=== PATIENT | female | born 1940 | race Caucasian/White ===

== ENCOUNTER 2017-08-16 18:29 | Inpatient (IN) ==
[2017-08-16] MEDS ORDERED: SALINE FLUSH 10ml SYRINGE IVF PRN (18:30)
--- NOTE | 2017-08-16 18:42 | Emergency Department Report ---
Seizure HPI - General Stated Complaint: SEIZURE Time Seen by Provider: 08/16/17 18:30 Source: EMS, RN notes reviewed, old records reviewed, other (NH) Mode of arrival: EMS Limitations: altered mental status - History of Present Illness HPI Narrative: 77yo woman presented to the ER by EMS after a witnessed seizure at her NH. Pt has no known h/o seizures. On EMS's arrival, pt was bradycardic and bradypneic. Pts BG was >100, and EKG was non-diagnostic. Pt initially was unresponsive. While transporting, pt began to open her eyes, but did not focus. On arrival to the ER, pt was able to move her extremities, was opening her eyes, and was able to focus on people and objects in the room. MD complaint: seizure Onset (ago): minute(s) Description of Episode: loss of consciousness, tonic-clonic movement Witnessed: yes - by bystander Trauma: No Seizure History: none Place: other ([place]) Possible Precipitating Event: none Associated symptoms: denies other symptoms Treatments prior to arrival: none - Related Data Home Medications Medication Instructions Recorded Confirmed Acetaminophen [Acetaminophen 8 650 mg PO Q8HR PRN 08/16/17 08/16/17 Hour] Alendronate [Fosamax] 70 mg PO Q7D 08/16/17 08/16/17 Bisacodyl Supp [Dulcolax] 10 mg RECTALLY DAILY PRN 08/16/17 08/16/17 Bisacodyl [Women's Laxative] 5 mg PO DAILY PRN 08/16/17 08/16/17 Cholecalciferol (Vitamin D3) 2,000 unit PO DAILY 08/16/17 08/16/17 [Vitamin D3] Docusate Sodium [Colace] 100 mg PO BID 08/16/17 08/16/17 Hydrocodone/APAP 5/325 [Newberry 1 - 2 tab PO Q4H PRN 08/16/17 08/16/17 5/325] Levothyroxine Tab [Synthroid] 25 mcg PO ACB 08/16/17 08/16/17 Memantine [Namenda] 10 mg PO BID 08/16/17 08/16/17 Milk of Magnesia [Mom] 30 ml PO DAILY PRN 08/16/17 08/16/17 Mv-Min/FA/Vit K/Lycop/Lut/Zeax 1 each PO DAILY 08/16/17 08/16/17 [Ocuvite Eye + Multi Tablet] PEG 3350 17gm PACKET [Miralax] 17 gm PO DAILY PRN 08/16/17 08/16/17 PEG 3350 17gm PACKET [Miralax] 17 gm PO Q2D 08/16/17 08/16/17 Sertraline [Zoloft] 50 mg PO DAILY 08/16/17 08/16/17 Allergies Allergy/AdvReac Type Severity Reaction Status Date / Time azithromycin Allergy Unknown Verified 08/16/17 19:00 cyclobenzaprine Allergy Unknown Verified 08/16/17 19:00 [From Flexeril] shrimp Allergy Unknown Verified 08/16/17 19:00 Review of Systems All systems: reviewed and negative except as stated Neurological: Reports: as per HPI, confusion, other (Seizure). Denies: headache , weakness, numbness, paresthesias, abnormal gait, vertigo PFSH Patient Stated Medical History Dementia Yes Transient Ischemic Attacks ( Yes TIA) Hearing Loss Yes: REFUSES TO WEAR HEARING AID Other HEENT Yes: WEARS GLASSES Gastroesophageal Reflux Yes Disease Hx Urinary Tract Infection Yes Depression Yes - Social History Smoking status: Unknown if ever smoked Physical Exam - Limitations Limitations: no limitations - General General appearance: lethargic - Normal Exams: Head:: Normocephalic without trauma Eyes:: Pupils are PERRLA w/ EOMI, No scleral icterus, irritation, or foreign bodies noted ENMT:: No facial trauma, nasal exudates, pharyngeal erythema, or exudates are noted Neck:: Full range of motion, without adenopathy Lymphatic:: No lymphadenopathy Musculoskeletal:: No tenderness, or deformity noted, good range of motion Integumentary:: No rashes, hives, or bruising noted Course - Consultations Consultation #1: Stanley Telemed: Will admit pt for further eval and treatment of likely CVA. Time: 20:17 Vital Signs Temperature 97.6 F 08/16/17 18:26 Pulse Rate 116 H 08/16/17 18:26 Respiratory Rate 16 08/16/17 18:26 Blood Pressure 126/65 08/16/17 18:26 Pulse Oximetry 94 08/16/17 18:26 Temperature 98.8 F 08/17/17 00:13 Pulse Rate 93 08/17/17 00:13 Respiratory Rate 16 08/17/17 00:13 Blood Pressure 107/54 08/17/17 00:13 Pulse Oximetry 93 08/17/17 00:13 Seizure - MDM Narrative Medical decision making narrative: WBC unremarkable Coags unremarkable CMP shows a BUN of 23; otherwise unremarkable UA unremarkable Tox screen universally negative Pt with a new-onset seizure in a setting of known TIA's; pt has no h/o seizures and no evidence of a mass on CT. No other obvious cause of pts sx. New-onset facial droop is concerning for a CVA, but pt is o/w back to baseline. Hospitalist will admit for further eval/obs. - Differential Diagnosis Likely: focal seizure, generalized seizure, new onset seizure - Medical Records Attestation: I reviewed the patient's medical records. - Lab Data Attestation: I reviewed the patient's lab results. Result diagrams: 08/16/17 18:46 08/16/17 18:46 Lab Results 08/16/17 08/16/17 08/16/17 Range/Units 18:46 18:46 18:46 WBC 7.4 (4.5-11.0) T/MM3 RBC 4.68 (4.00-5.20) M/MM3 Hgb 12.6 (12-16) GM/DL Hct 38.3 (36-46) % MCV 81.8 (80-100) UM3 MCH 26.9 (26-34) UUG MCHC 32.9 (31-37) GM/DL RDW Std Deviation 51.1 H (36.9-50.2) FL Plt Count 238 (130-400) T/MM3 MPV 9.8 (9.4-12.4) UM3 Immature Gran % (Auto) 0.5 (0.0-0.5) % Neut % (Auto) 62.8 (33-66) % Lymph % (Auto) 26.8 (23-45) % [place] % (Auto) 7.5 (0-9.0) % Eos % (Auto) 2.0 (0-4) % Baso % (Auto) 0.4 (0-2) % Neut # (Auto) 4.7 (1.8-7.7) T/MM3 Lymph # (Auto) 2.0 (1-4.8) T/MM3 [place] # (Auto) 0.6 (0-0.8) T/MM3 Eos # (Auto) 0.2 (0-0.5) T/MM3 Baso # (Auto) 0.0 (0-0.2) T/MM3 Abs Immat Gran (auto) 0.04 H (0.00-0.03) T/MM3 INR 0.99 (0.92-1.18) APTT 26.0 (24-36) SEC Turbidity < 20 (0-20) Sodium 143 (134-144) MEQ/L Potassium 4.1 (3.6-5) MEQ/L Chloride 103 (98-107) MEQ/L Carbon Dioxide 29 (22-30) MEQ/L Anion Gap 11 (5-15) meq/L BUN 23.0 H (7-17) MG/DL Creatinine 1.0 (0.7-1.2) mg/dL GFR Calculation 54 BUN/Creatinine Ratio 23 (6-26) RATIO Glucose 109 (65-110) MG/DL Calculated Osmolality 280 (261-280) MOSM/KG Calcium 9.4 (8.4-10.2) MG/DL Total Bilirubin 0.20 (0.20-1.30) MG/DL Icterus Index < 2 (0-7) AST 24 (14-36) U/L ALT 13 (1-35) U/L Alkaline Phosphatase 87 (38-126) U/L Total Protein 7.0 (6.3-8.2) g/dL Albumin 4.0 (3.5-5.0) g/dL Globulin 3.0 (2.4-3.6) G/DL Albumin/Globulin Ratio 1.3 (1.1-2.2) RATIO Specimen Hemolysis < 15 (0-25) Ur Collection Type Urine Color (YELLOW) Urine Clarity Urine pH (5.0-8.0) Ur Specific [place] (1.015-1.025) Urine Protein (NEGATIVE) Urine Glucose (UA) (NEGATIVE) Urine Ketones (NEGATIVE) Urine Occult Blood (NEGATIVE) Urine Nitrate (NEGATIVE) Urine Bilirubin (NEGATIVE) Urine Urobilinogen (NORMAL) EU/DL Ur Leukocyte Esterase (NEGATIVE) Urinalysis Comment Urine Opiates Screen ng/mL Ur Oxycodone Screen ng/mL Urine Methadone Screen ng/mL Ur Propoxyphene Screen ng/mL Ur Barbiturates Screen ng/mL U Tricyclic Antidepress ng/mL Ur Phencyclidine Scrn ng/mL Ur Amphetamines Screen ng/mL U Methamphetamines Scrn ng/mL U Benzodiazepines Scrn ng/mL Urine Cocaine Screen ng/mL U Cannabinoids Screen ng/mL 08/16/17 08/16/17 Range/Units 19:55 19:56 WBC (4.5-11.0) T/MM3 RBC (4.00-5.20) M/MM3 Hgb (12-16) GM/DL Hct (36-46) % MCV (80-100) UM3 MCH (26-34) UUG MCHC (31-37) GM/DL RDW Std Deviation (36.9-50.2) FL Plt Count (130-400) T/MM3 MPV (9.4-12.4) UM3 Immature Gran % (Auto) (0.0-0.5) % Neut % (Auto) (33-66) % Lymph % (Auto) (23-45) % [place] % (Auto) (0-9.0) % Eos % (Auto) (0-4) % Baso % (Auto) (0-2) % Neut # (Auto) (1.8-7.7) T/MM3 Lymph # (Auto) (1-4.8) T/MM3 [place] # (Auto) (0-0.8) T/MM3 Eos # (Auto) (0-0.5) T/MM3 Baso # (Auto) (0-0.2) T/MM3 Abs Immat Gran (auto) (0.00-0.03) T/MM3 INR (0.92-1.18) APTT (24-36) SEC Turbidity (0-20) Sodium (134-144) MEQ/L Potassium (3.6-5) MEQ/L Chloride (98-107) MEQ/L Carbon Dioxide (22-30) MEQ/L Anion Gap (5-15) meq/L BUN (7-17) MG/DL Creatinine (0.7-1.2) mg/dL GFR Calculation BUN/Creatinine Ratio (6-26) RATIO Glucose (65-110) MG/DL Calculated Osmolality (261-280) MOSM/KG Calcium (8.4-10.2) MG/DL Total Bilirubin (0.20-1.30) MG/DL Icterus Index (0-7) AST (14-36) U/L ALT (1-35) U/L Alkaline Phosphatase (38-126) U/L Total Protein (6.3-8.2) g/dL Albumin (3.5-5.0) g/dL Globulin (2.4-3.6) G/DL Albumin/Globulin Ratio (1.1-2.2) RATIO Specimen Hemolysis (0-25) Ur Collection Type Urine, cath soto Urine Color Yellow (YELLOW) Urine Clarity Clear Urine pH 6.5 (5.0-8.0) Ur Specific [place] 1.010 L (1.015-1.025) Urine Protein Negative (NEGATIVE) Urine Glucose (UA) Negative (NEGATIVE) Urine Ketones Negative (NEGATIVE) Urine Occult Blood Negative (NEGATIVE) Urine Nitrate Negative (NEGATIVE) Urine Bilirubin Negative (NEGATIVE) Urine Urobilinogen 0.2 (NORMAL) EU/DL Ur Leukocyte Esterase Negative (NEGATIVE) Urinalysis Comment Microscopic not ind. Urine Opiates Screen Negative ng/mL Ur Oxycodone Screen Negative ng/mL Urine Methadone Screen Negative ng/mL Ur Propoxyphene Screen Negative ng/mL Ur Barbiturates Screen Negative ng/mL U Tricyclic Antidepress Negative ng/mL Ur Phencyclidine Scrn Negative ng/mL Ur Amphetamines Screen Negative ng/mL U Methamphetamines Scrn Negative ng/mL U Benzodiazepines Scrn Negative ng/mL Urine Cocaine Screen Negative ng/mL U Cannabinoids Screen Negative ng/mL - Radiology Data MDM Radiology Attestation Statement: I reviewed the patient's radiology results. CT Head: IMPRESSION: No evidence of acute intracranial brain pathology. - EKG Data EKG #1 EKG attestation: Yes: I reviewed and interpreted this EKG. EKG shows normal: sinus rhythm, axis, intervals, QRS complexes, ST-T waves Rate: tachycardia Interpretation: normal EKG Disposition Clinical Impression: Seizure CVA (cerebral vascular accident) Qualifiers: CVA mechanism: unspecified Qualified Code(s): I63.9 - Cerebral infarction, unspecified Disposition: 02 To [facility] Condition: Improved Time of Disposition: 20:31 - Seen By: physician
--- OUTSIDE RECORDS SUMMARY | 2017-08-16 18:59 | External Medical Summary | Clinical Summary ---
:1940 Author Organization [facility] Address [address] [place] [id number] Phone Care Team Providers Name Role Phone Danni Gonzales MD Primary Care Provider Allergies Active Allergy Reactions Severity Noted Date Comments Cyclobenzaprine Rash Low 03/22/2017 Azithromycin Rash Low 03/22/2017 Current Medications Prescription Sig. Disp. Refills Start Date End Date Status levothyroxine Take 25 mcg by mouth Active (SYNTHROID) 25 MCG every morning before tablet breakfast. Multiple Take 1 tablet by Active Vitamins-Minerals mouth daily. (OCUVITE EYE + MULTI PO) sertraline (ZOLOFT) Take 50 mg by mouth Active 50 MG tablet daily. Cholecalciferol 2000 Take 2,000 mg by Active units CAPS mouth daily. Cholecalciferol (Vitamin d3) memantine (NAMENDA Take 28 mg by mouth Active XR) 28 MG ER capsule daily. alendronate (FOSAMAX) Take 70 mg by mouth Active 70 MG tablet every 7 days. hydrocodone-acetamino Take 1-2 tablets by 30 tablet 0 03/28/2017 Active phen (NORCO) 5-325 mouth every 4 (four) MGIndications: Closed hours as needed for fracture of multiple Moderate Pain. Do ribs of right side not exceed a daily with routine healing, dose of 12 tablets subsequent encounter acetaminophen Take 2 tablets (650 30 tablet 0 03/28/2017 Active (TYLENOL) 325 MG mg total) by mouth tabletIndications: every 6 (six) hours Closed fracture of as needed for Mild multiple ribs of Pain or Fever. right side with routine healing, subsequent encounter polyethylene glycol Take 17 g by mouth 14 each 0 03/28/2017 Active (MIRALAX) daily as needed for packetIndications: Constipation. Closed fracture of multiple ribs of right side with routine healing, subsequent encounter bisacodyl (DULCOLAX) Take 1 tablet (5 mg 30 tablet 0 03/28/2017 Active 5 MG EC total) by mouth tabletIndications: daily as needed for Closed fracture of Constipation. multiple ribs of right side with routine healing, subsequent encounter Active Problems Problem Noted Date Acute left ankle pain 04/25/2017 Closed nondisplaced bicondylar fracture of left tibia with routine 04/25/2017 healing, subsequent encounter Right hand fracture, closed, initial encounter 03/28/2017 Overview: 4th and 5th distal metacarpal Closed nondisplaced fracture of phalanx of left thumb 03/28/2017 Tibial fracture 03/28/2017 Overview: Left tibial plateau fx repaired with ORIF Clavicle fracture 03/28/2017 Fibula fracture 03/22/2017 Late onset Alzheimer's disease without behavioral disturbance 03/22/2017 Other specified hypothyroidism 03/22/2017 Osteoporosis 03/22/2017 Closed fracture of multiple ribs of right side, initial encounter 03/22/2017 Urinary tract infection without hematuria, site unspecified 03/22/2017 Overview: From cultures obtained at [facility] Resolved Problems Problem Noted Date Resolved Date Fall 03/23/2017 03/28/2017 Sepsis secondary to UTI (HCC) 03/23/2017 03/28/2017 Traumatic pneumothorax 03/22/2017 03/28/2017 Overview: On right Encounters Date Type Specialty Care Team Description 07/11/2017 Office Visit Nima Gamino MD Closed nondisplaced bicondylar fracture of left tibia with routine healing, subsequent encounter (Primary Dx) 07/11/2017 Imaging Nima Gamino MD Closed nondisplaced bicondylar fracture of left tibia with routine healing, subsequent encounter 07/10/2017 Orders Only Nima Gamino MD Closed nondisplaced bicondylar fracture of left tibia with routine healing, subsequent encounter (Primary Dx) 05/30/2017 Imaging Nima Gamino MD Closed nondisplaced bicondylar fracture of left tibia with routine healing, subsequent encounter 05/30/2017 Office Visit Nima Gamino MD Closed fracture of multiple ribs of right side, initial encounter (Primary Dx); Closed nondisplaced bicondylar fracture of left tibia with routine healing, subsequent encounter 05/29/2017 Orders Only Nima Gamino MD Closed nondisplaced bicondylar fracture of left tibia with routine healing, subsequent encounter (Primary Dx) from Last 3 Months Immunizations Name Dates Previously Given Next Due L2F4-10,injectable ([employer] registry) 05/29/2009 Hep B, Adult 04/23/1992, 11/21/1991, 10/17/1991 Herpes Zoster-Live(Zostavax) 04/07/2012 INFLUENZA A&B TRIVALENT VAC 02/15/2017 ADJUVANTED PF (Adults=>65 y/o-FLUAD) Tdap 03/22/2017 Social History Tobacco Use Types Packs/Day Years Used Date Never Assessed Sex Assigned at Date Recorded Not on file Last Filed Vital Signs Vital Sign Reading Time Taken Blood Pressure 104/55 03/28/2017 9:36 AM TELEVISION AGENT Pulse 115 03/28/2017 9:36 AM TELEVISION AGENT Temperature 37.2 C (98.9 F) 03/28/2017 9:36 AM TELEVISION AGENT Respiratory Rate 16 03/28/2017 9:36 AM TELEVISION AGENT Oxygen Saturation 98% 03/28/2017 9:36 AM TELEVISION AGENT Inhaled Oxygen Concentration - - Weight 56.8 kg (125 lb 3.2 oz) 03/27/2017 3:14 AM TELEVISION AGENT Height 162.6 cm (5' 4") 03/26/2017 3:27 AM TELEVISION AGENT Body Mass Index 21.49 03/27/2017 3:14 AM TELEVISION AGENT Plan of Treatment Health Maintenance Due Date Last Done Comments Pneumo-Adult (1 of 2 - PCV13) 2005 Annual Wellness Visit 03/27/2006 DTaP,Tdap,and Td Vaccines (2 - Td) 03/22/2027 03/22/2017 Zoster Vaccine Completed 04/07/2012 Influenza Vaccine Completed 02/15/2017 Implants Implanted Type Area Loaf Counter Device Expiration Model / Serial Identifier Date / Lot Chip Cancellous Cube 30cc - [id number] Left: [employer]OURCE [id number] 06/04 [id number] / Implanted: Qty: 1 on 03/25/2017 by Nima Gamino MD Tibia / [id number] Screw Self-Tapping 3.5mm X 38mm - [id number] Left: Synthes 204.838 / Implanted: Qty: 1 on 03/25/2017 by Nima Gamino MD Tibia / Plate, Proximal Tibia 6 Holes Left 117 Mm - [id number] Left: Synthes [id number] / Implanted: Qty: 1 on 03/25/2017 by Nima Gamino MD Tibia / Screw Variable Angle Locking Self Tapping 50 Mm - [id number] Left: Synthes 02.127.150 / Implanted: Qty: 2 on 03/25/2017 by Nima Gamino MD Tibia / Screw Variable Angle Locking Self Tapping 60 Mm - [id number] Left: Synthes 02.127.160 / Implanted: Qty: 1 on 03/25/2017 by Nima Gamino MD Tibia / Screw Variable Angle Locking Self Tapping 65 Mm - [id number] Left: Synthes 02.127.165 / Implanted: Qty: 1 on 03/25/2017 by Nima Gamino MD Tibia / Screw Variable Angle Locking Self Tapping 70 Mm - [id number] Left: Synthes 02.127.170 / Implanted: Qty: 1 on 03/25/2017 by Nima Gamino MD Tibia / Screw Self-Tapping 3.5mm X 28mm - [id number] Left: Synthes 204.828 / Implanted: Qty: 1 on 03/25/2017 by Nima Gamino MD Tibia / Screw Self-Tapping 3.5mm X 30mm - [id number] Left: Synthes 204.830 / Implanted: Qty: 1 on 03/25/2017 by Nima Gamino MD Tibia / Screw Self-Tapping 3.5mm X 32mm - [id number] Left: Synthes 204.832 / Implanted: Qty: 2 on 03/25/2017 by Nima Gamino MD Tibia / Results XR Left Knee 2 views (07/11/2017 1:59 PM)Only the most recent of2 resultswithin the time period is included. Specimen Performing Laboratory PACS Impressions Impression: Stable healing left tibial plateau fracture Narrative Clinical Indication: Reason for exam:->recheck 2 views of the left knee Findings: X-rays the left knee demonstrate plate and screw fixation across a tibial plateau fracture. Closed treatment of proximal fibula fracture has gone on to successful union. There is no evidence of any implant failure. Fracture lines have consolidated well. Overlying brace material is noted Procedure Note Jef Mccarthy Results In - 07/12/2017 7:33 AM TELEVISION AGENT Clinical Indication: Reason for exam:->recheck 2 views of the left knee Findings: X-rays the left knee demonstrate plate and screw fixation across a tibial plateau fracture. Closed treatment of proximal fibula fracture has gone on to successful union. There is no evidence of any implant failure. Fracture lines have consolidated well. Overlying brace material is noted IMPRESSION: Impression: Stable healing left tibial plateau fracture from Last 3 Months
--- OUTSIDE RECORDS SUMMARY | 2017-08-16 18:59 | External Medical Summary | Encounter Summary ---
:1940 Author Organization [facility] Address [address] [place] [address] Phone Care Team Providers Name Role Phone Danni Gonzales MD Primary Care Provider Encounter Details Date Type Department Care Team Description 07/11/2017 Imaging Gilberto Nava Neuro Nima Gamino, Closed nondisplaced X-Ray-Heron Howe MD bicondylar fracture of [address] left [place] [address] [place] [address] healing, subsequent [phone] encounter Social History Tobacco Use Types Packs/Day Years Used Date Never Assessed Sex Assigned at Date Recorded Not on file as of this encounter Plan of Treatment Not on fileas of this encounter Results XR Left Knee 2 views (07/11/2017 1:59 PM) Specimen Performing Laboratory PACS Impressions Impression: Stable [...] Overlying brace material is noted Procedure Note Fabio, Rad Results In - 07/12/2017 7:33 AM CHAIR SPRING ASSEMBLER Clinical Indication: Reason for exam:->recheck 2 views [...] Impression: Stable healing left tibial plateau fracture in this encounter Visit Diagnoses Diagnosis Closed nondisplaced bicondylar fracture of left tibia with routine healing, subsequent encounter
--- OUTSIDE RECORDS SUMMARY | 2017-08-16 19:00 | External Medical Summary | Continuity of Care Document ---
:[address] [facility]. Address [address] [place] [address] Care Team Providers Name Role Phone Danni Gonzales MD Primary Care Physician Insurance Providers Payer Name Policy Number Subscriber Name Relationship MEDICARE INPT & OUTPT [id number] RAMANA PITT SELF / SAME PATIENT [facility] [id number] RAMANA PITT SELF / SAME PATIENT Advance Directives Directive Response Recorded Date/Time Advance Directives: Yes 03/22/17 4:35am Chief Complaint and Reason for Visit Reason for Visit Problems Active Medical Problems Problem Onset Date Recorded Date Status Acute subdural hematoma Unknown 08/21/16 Active Distal radius fracture, left Unknown 08/21/16 Active Fracture of ulnar styloid Unknown 08/21/16 Active Medications Current Home Medications Medication Dose Units Route Directions Days/Qty Instructions Start Date Alendronate (Fosamax) 70 MG By Mouth WEEKLY 70 MG TABLET Cholecalciferol 2,000 IU By Mouth Once a day (Vitamin D3) 2,000 IU SGL Eye Formula 1 TAB By Mouth Once a day Multivit/mineral (Ocuvite) 1 TAB TABLET Levothyroxine 0.025 MG By Mouth Once a day (Synthroid) 0.025 MG TABLET Memantine XR (Namenda 28 MG By Mouth Once a day XR) 28 MG CAPSULE Sertraline (Zoloft) 50 MG By Mouth Once a day 50 MG TABLET Past Home Medications Medication Directions Ordered Status Alprazolam (Xanax) 0.5 Mg Tablet as needed for SEVERE Unknown Discontinued Tablet, 0.5 Mg By Mouth AGITATION Acetaminophen (Tylenol) 325 Mg Every six hours as needed for Unknown Discontinued Tablet Tablet, 650 Mg By Mouth pain Hydrocodone/Acetaminophen ([place]) Q4-6 HR as needed for Unknown Discontinued 7.5 Mg/325 Mg Tablet Tablet, 1-2 NEEDED FOR PAIN Tab By Mouth Memantine (Namenda) (Unknown Unknown Discontinued Strength) Tablet Tablet, Unknown Dose By Mouth Sertraline (Zoloft) 25 Mg Tablet Once a day Unknown Discontinued Tablet, 25 Mg By Mouth Family History Relationship Name Date of Condition Age ( At Cause of Age ( At Age Gender Recorded Onset ) ) Date/Time FATHER No pertinent 60+ M 08/22/16 family 1028 history MOTHER No pertinent 60+ F 08/22/16 family 1028 history Social History Problem Response Recorded Date Occupation/Former Occupation: Retired 08/30/16 Query Response Start Date Stop Date Smoking status: Never smoker Hospital Discharge Instructions No hospital discharge instructions. 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: Y March 22, 2017 5:18am Contractures: N August 24, 2016 8:31am Unresponsive: N August 24, 2016 8:31am Allergies, Adverse Reactions, Alerts Allergen Type Severity Reaction Status Last Updated azithromycin Allergy Unknown Active 03/22/17 cyclobenzaprine Allergy Unknown RASH Active 03/22/17 Immunizations Name Date Given Type Tetanus Unknown Historical Tdap 03/22/17 Administered Vital Signs Vital Reading Collection Date/Time Result Blood Pressure 03/22/17 7:45am 131/67 Blood Pressure Source 03/22/17 7:45am Supine Temperature 03/22/17 4:35am 97.7 F Temperature Source 03/22/17 4:35am Oral Respiratory Rate 03/22/17 7:45am 18 Pulse Rate 03/22/17 7:45am 92 Pulse Location 03/22/17 7:45am Cardio-Resp. Monitor Bedside Pulse Oximetry 03/22/17 7:45am 95 Height 03/22/17 4:35am 5 ft 2.01 in Height 03/22/17 4:35am 157.5 cm Weight 03/22/17 4:35am 120 lb Weight 03/22/17 4:35am 54.5 kg Body Mass Index 03/22/17 4:35am 22.0 kg/m2 Results Laboratory Results Test Name Result Units Flags Reference Collection Result Comments Date/Time Date/Time Urine Collection CATHETER 03/22/17 03/22/17 Type 7:00am 7:22am Urine Color Yellow 03/22/17 03/22/17 7:00am 7:33am Urine Appearance Hazy 03/22/17 03/22/17 7:00am 7:33am Urine Specific 1.015 1.005-1.035 03/22/17 03/22/17 [place] 7:00am 7:33am Urine pH 6 5-8 03/22/17 03/22/17 7:00am 7:33am Urine Protein Negative NEGATIVE 03/22/17 03/22/17 7:00am 7:33am Urine Glucose Negative NEGATIVE 03/22/17 03/22/17 7:00am 7:33am Urine Ketones Negative NEGATIVE 03/22/17 03/22/17 7:00am 7:33am Urine Bilirubin Negative NEGATIVE 03/22/17 03/22/17 7:00am 7:33am Urine Urobilinogen Negative mg/dL NEGATIVE 03/22/17 03/22/17 7:00am 7:33am Urine Nitrate Positive H NEGATIVE 03/22/17 03/22/17 7:00am 7:33am Urine Blood Negative NEGATIVE 03/22/17 03/22/17 7:00am 7:33am Urine Leukocyte Negative NEGATIVE 03/22/17 03/22/17 Esterase 7:00am 7:33am Urine WBC 5-10 /hpf H 03/22/17 03/22/17 7:00am 7:33am Urine RBC 0-2 /hpf 03/22/17 03/22/17 7:00am 7:33am Urine Squamous 0-2 /hpf 03/22/17 03/22/17 Epithelial Cells 7:00am 7:33am Urine Mucus Present /lpf 03/22/17 03/22/17 7:00am 7:33am Urine Bacteria None Seen /hpf 03/22/17 03/22/17 7:00am 7:33am White Blood Count 15.8 K/mm3 H 4.8-10.8 03/22/17 03/22/17 4:57am 5:05am Red Blood Count 4.17 M/mm3 4.10-5.30 03/22/17 03/22/17 4:57am 5:05am Hemoglobin 12.0 g/dl L 12.5-16.0 03/22/17 03/22/17 4:57am 5:05am Hematocrit 36.3 % L 37.0-47.0 03/22/17 03/22/17 4:57am 5:05am Mean Corpuscular 87 fl 80.0-100.0 03/22/17 03/22/17 Volume 4:57am 5:05am Mean Corpuscular 29 pg 27.0-31.0 03/22/17 03/22/17 Hemoglobin 4:57am 5:05am Mean Corpuscular 33 g/dl 33.0-37.0 03/22/17 03/22/17 Hemoglobin Concent 4:57am 5:05am Red Cell 13.8 % 11.5-14.5 03/22/17 03/22/17 Distribution Width 4:57am 5:05am Platelet Count 190 K/mm3 130-400 03/22/17 03/22/17 4:57am 5:05am Mean Platelet 10.0 fl 7.4-10.4 03/22/17 03/22/17 Volume 4:57am 5:05am Granulocytes (%) 82.4 % H 42.2-75.2 03/22/17 03/22/17 4:57am 5:05am Lymphocytes % 10.6 % L 20.0-51.0 03/22/17 03/22/17 4:57am 5:05am Monocytes % 5.0 % 1.7-9.3 03/22/17 03/22/17 4:57am 5:05am Eosinophils % 0.8 % 0-4.0 03/22/17 03/22/17 4:57am 5:05am Basophils % 0.3 % 0.0-2.0 03/22/17 03/22/17 4:57am 5:05am Granulocytes # 13.0 H 1.4-6.5 03/22/17 03/22/17 4:57am 5:05am Lymphocytes # 1.7 1.2-3.4 03/22/17 03/22/17 4:57am 5:05am Monocytes # 0.8 H 0.1-0.6 03/22/17 03/22/17 4:57am 5:05am Eosinophils # 0.1 0.0-0.7 03/22/17 03/22/17 4:57am 5:05am Basophils # 0.0 0.0-0.2 03/22/17 03/22/17 4:57am 5:05am Glucose Level 110 mg/dL H 74-106 03/22/17 03/22/17 4:57am 5:41am Blood Urea 17 mg/dL 7-17 03/22/17 03/22/17 Nitrogen 4:57am 5:41am Creatinine 0.92 mg/dL 0.52-1.25 03/22/17 03/22/17 4:57am 5:41am Estimated GFR 71 03/22/17 03/22/17 () 4:57am 5:41am Estimated GFR 59 03/22/17 03/22/17 eGFR Interpretation: (Non- 4:57am 5:41am [place] Chronic Kidney Disease=CKD CKD STAGE I > or=90 mL/min/1.73 square meters STAGE II 60 - 89 STAGE III 30 - 59 STAGE IV 15 - 29 STAGE V <15 NOTE: The MDRD Study equation has not been validated for use with the elderly (over 70 years of age), women, patients with serious comorbid conditions, or persons with extremes of body size, muscle mass, or nutritional status. Sodium Level 137 mmol/L 137-145 03/22/17 03/22/17 4:57am 5:41am Potassium Level 3.8 mmol/L 3.4-5.0 03/22/17 03/22/17 4:57am 5:41am Chloride Level 104 mmol/L 98-107 03/22/17 03/22/17 4:57am 5:41am Carbon Dioxide 26 mmol/L 22-30 03/22/17 03/22/17 Level 4:57am 5:41am Anion Gap 7 mmol/L 7-16 03/22/17 03/22/17 4:57am 5:41am Calcium Level 8.8 mg/dL 8.4-10.2 03/22/17 03/22/17 4:57am 5:41am Calcium Adjusted 9.2 mg/dL 8.4-10.2 03/22/17 03/22/17 for Albumin 4:57am 5:41am Serum Total 6.1 gm/dL L 6.4-8.2 03/22/17 03/22/17 Protein 4:57am 5:41am Albumin 3.5 gm/dL 3.5-5.0 03/22/17 03/22/17 4:57am 5:41am Total Bilirubin 0.4 mg/dL 0.0-1.0 03/22/17 03/22/17 4:57am 5:41am Aspartate Amino 29 U/L 15-37 03/22/17 03/22/17 Transf (AST/SGOT) 4:57am 5:41am Alanine 32 U/L 9-52 03/22/17 03/22/17 Aminotransferase 4:57am 5:41am (ALT/SGPT) Alkaline 54 U/L 50-136 03/22/17 03/22/17 Phosphatase 4:57am 5:41am Procedures No Known History of Procedures. Encounters Encounter Location Arrival/Admit Date Discharge/Depart Date Attending Provider Departed [facility] 03/22/17 4:24am 03/22/17 7:58am [facility] MD Billy
--- OUTSIDE RECORDS SUMMARY | 2017-08-16 19:00 | External Medical Summary | Encounter Summary ---
:1940 Author Organization [facility] Address [address] [place] [address] Phone Care Team Providers Name Role Phone Danni Gonzales MD Primary Care Provider Encounter Details Date Type Department Care Team Description 05/29/2017 Orders Only Nima Barlow, Closed nondisplaced Orthopedics & MD bicondylar fracture of Sports Medicine [address] left tibia with routine [address] [address] healing, [place] [address] encounter (Primary Dx) [phone] Social History Tobacco Use Types Packs/Day Years Used Date Never Assessed Sex Assigned at Date Recorded Not on file as of this encounter Plan of Treatment Not on fileas of this encounter Results XR Left Knee 2 views (05/30/2017 11:31 AM) Specimen Performing Laboratory PACS Impressions Impression: Stable healing left tibial plateau fracture Narrative Clinical Indication: Reason for exam:->recheck 2 views of the left knee Findings: X-rays of the left knee demonstrates stable plate fixation across the tibial plateau fracture. No evidence of change in alignment. Good consolidation at the fracture sites of both the fibula and the tibia are noted Procedure Note Jef Mccarthy Results In - 06/08/2017 9:27 AM [facility] Clinical Indication: Reason for exam:->recheck 2 views of the left knee Findings: X-rays of the left knee demonstrates stable plate fixation across the tibial plateau fracture. No evidence of change in alignment. Good consolidation at the fracture sites of both the fibula and the tibia are noted IMPRESSION: Impression: Stable healing left tibial plateau fracture in this encounter Visit Diagnoses Diagnosis Closed nondisplaced bicondylar fracture of left tibia with routine healing, subsequent encounter - Primary
--- OUTSIDE RECORDS SUMMARY | 2017-08-16 19:00 | External Medical Summary | Continuity of Care Document ---
:1940 Author Organization [facility]. Care Team Providers Name Role Phone Danni Gonzales MD Primary Care Physician Insurance Providers Payer Name Policy Number Subscriber Name Relationship MEDICARE INPT & OUTPT [id number] RAMANA PITT SELF / SAME PATIENT [facility] [id number] RAMANA PITT SELF / SAME PATIENT Advance Directives Directive Response Recorded Date/Time Advance Directives: Yes 08/21/16 10:57pm Chief Complaint and Reason for Visit Reason for Visit ER ADMIT Problems Active Medical Problems Problem Onset Date Recorded Date Status Acute subdural hematoma Unknown 08/21/16 Active Distal radius fracture, left Unknown 08/21/16 Active Fracture of ulnar styloid Unknown 08/21/16 Active Medications Current Home Medications Medication Dose Units Route Directions Days/Qty Instructions Start Date ALPRAZolam (Xanax) 0.5 MG PO PRN SEVERE 0.5 MG TABLET AGITATION Eye Formula 1 TAB PO Once a day Multivit/mineral (Ocuvite) 1 TAB TABLET Levothyroxine 0.025 MG PO Once a day (Synthroid) 0.025 MG TABLET Memantine XR 28 MG PO Once a day (Namenda XR) 28 MG CAPSULE Sertraline (Zoloft) 50 MG PO Once a day 50 MG TABLET Vitamin D (Kev 2,000 IU PO Once a day Natural D2000) 2,000 IU SGL Past Home Medications Medication Directions Ordered Status Memantine (Namenda) (Unknown Strength) Tablet Tablet, Unknown Discontinued Unknown Dose Po Sertraline (Zoloft) 25 Mg Tablet Tablet, 25 Mg Po Once a day Unknown Discontinued Family History Relationship Name Date of Condition Age ( At Cause of Age ( At Age Gender Recorded Onset ) ) Date/Time FATHER No pertinent 60+ 60+ M 08/22/16 family 1028 history MOTHER No pertinent 60+ 60+ F 08/22/16 family 1028 history Social History Query Response Start Date Stop Date Smoking status: Never smoker Hospital Discharge Instructions Plan of Care Problem: Mobility Goal: increase mobility Instructions: pt/ot Plan of Care Discharge Date 08/24/16 Disposition 03-XFER CORRECTION FAC Prescriptions See Medications Section Care Plan and Goals See Discharge Instructions section Functional Status Query Response Date Recorded Paralysis: N August 24, 2016 8:31am Steady Gait: N August 24, 2016 8:31am Weakness: N August 24, 2016 8:31am 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[employer] Equal: Y August 23, 2016 8:00pm Contractures: N August 24, 2016 8:31am Alert: Y August 24, 2016 8:31am Oriented x4: N August 24, 2016 8:31am Disoriented/Confused: Y August 24, 2016 8:31am Drowsy: N August 24, 2016 8:31am Lethargic: N August 24, 2016 8:31am Unresponsive: N August 24, 2016 8:31am Allergies, Adverse Reactions, Alerts Allergen Type Severity Reaction Status Last Updated azithromycin Allergy Unknown Active 08/22/16 cyclobenzaprine Allergy Unknown RASH Active 08/22/16 Immunizations Name Date Given Type Tetanus Unknown Historical Vital Signs Vital Reading Collection Date/Time Result Blood Pressure 08/24/16 11:30am 132/60 Blood Pressure Source 08/24/16 11:30am Sitting Patient Temperature 08/24/16 11:30am 98.4 Temperature Source 08/24/16 11:30am Oral Respiratory Rate 08/24/16 11:30am 18 Pulse Rate 08/24/16 11:30am 110 Pulse Location 08/24/16 11:30am Dynamap Bedside Pulse Oximetry 08/24/16 11:30am 92 Height 08/24/16 11:30am 162.6 cm Height 08/24/16 11:30am 5 ft 04 in Weight 08/24/16 11:30am 55 kg Weight 08/24/16 11:30am 121 lb 4.07 oz Body Mass Index 08/24/16 11:30am 20.8 Results Laboratory Results Test Name Result Units Flags Reference Collection Result Comments Date/Time Date/Time White Blood Count 8.8 K/mm3 4.8-10.8 08/23/16 08/23/16 6:04am 8:53am Red Blood Count 3.69 M/mm3 L 4.10-5.30 08/23/16 08/23/16 6:04am 8:53am Hemoglobin 10.5 g/dl L 12.5-16.0 08/23/16 08/23/16 6:04am 8:53am Hematocrit 32.8 % L 37.0-47.0 08/23/16 08/23/16 6:04am 8:53am Mean Corpuscular 89 fl 80.0-100.0 08/23/16 08/23/16 Volume 6:04am 8:53am Mean Corpuscular 28 pg 27.0-31.0 08/23/16 08/23/16 Hemoglobin 6:04am 8:53am Mean Corpuscular 32 g/dl L 33.0-37.0 08/23/16 08/23/16 Hemoglobin Concent 6:04am 8:53am Red Cell 13.7 % 11.5-14.5 08/23/16 08/23/16 Distribution Width 6:04am 8:53am Platelet Count 171 K/mm3 130-400 08/23/16 08/23/16 6:04am 8:53am Mean Platelet 10.6 fl H 7.4-10.4 08/23/16 08/23/16 Volume 6:04am 8:53am Glucose Level 100 mg/dL 74-106 08/23/16 08/23/16 6:04am 8:37am Blood Urea 8 mg/dL 7-17 08/23/16 08/23/16 Nitrogen 6:04am 8:37am Creatinine 0.72 mg/dL 0.52-1.25 08/23/16 08/23/16 6:04am 8:37am Estimated GFR 96 08/23/16 08/23/16 () 6:04am 8:37am Estimated GFR 79 08/23/16 08/23/16 eGFR Interpretation: (Non- 6:04am 8:37am [place] Chronic Kidney Disease=CKD CKD STAGE I > [...] muscle mass, or nutritional status. Sodium Level 135 mmol/L L 137-145 08/23/16 08/23/16 6:04am 8:37am Potassium Level 3.6 mmol/L 3.4-5.0 08/23/16 08/23/16 6:04am 8:37am Chloride Level 102 mmol/L 98-107 08/23/16 08/23/16 6:04am 8:37am Carbon Dioxide 24 mmol/L 22-30 08/23/16 08/23/16 Level 6:04am 8:37am Anion Gap 9 mmol/L 7-16 08/23/16 08/23/16 6:04am 8:37am Calcium Level 8.0 mg/dL L 8.4-10.2 08/23/16 08/23/16 6:04am 8:37am Granulocytes (%) 85.9 % H 42.2-75.2 08/22/16 08/22/16 5:25am 6:01am Lymphocytes % 7.1 % L 20.0-51.0 08/22/16 08/22/16 5:25am 6:01am Monocytes % 5.9 % 1.7-9.3 08/22/16 08/22/16 5:25am 6:01am Eosinophils % 0.2 % 0-4.0 08/22/16 08/22/16 5:25am 6:01am Basophils % 0.3 % 0.0-2.0 08/22/16 08/22/16 5:25am 6:01am Granulocytes # 10.9 H 1.4-6.5 08/22/16 08/22/16 5:25am 6:01am Lymphocytes # 0.9 L 1.2-3.4 08/22/16 08/22/16 5:25am 6:01am Monocytes # 0.7 H 0.1-0.6 08/22/16 08/22/16 5:25am 6:01am Eosinophils # 0.0 0.0-0.7 08/22/16 08/22/16 5:25am 6:01am Basophils # 0.0 0.0-0.2 08/22/16 08/22/16 5:25am 6:01am Prothrombin Time 12.5 SECONDS 9.7-12.8 08/21/16 08/21/16 10:21pm 10:45pm INR International 1.1 0.8-3.0 08/21/16 08/21/16 Normalized Ratio 10:21pm 10:45pm Partial 28.0 SECONDS 26.0-37.0 08/21/16 08/21/16 Thromboplastin 10:21pm 10:45pm Time - [place] Calcium Adjusted 8.5 mg/dL 8.4-10.2 08/21/16 08/21/16 for Albumin 10:21pm 10:45pm Serum Total 6.3 gm/dL L 6.4-8.2 08/21/16 08/21/16 Protein 10:21pm 10:45pm Albumin 3.8 gm/dL 3.5-5.0 08/21/16 08/21/16 10:21pm 10:45pm Total Bilirubin 0.6 mg/dL 0.0-1.0 08/21/16 08/21/16 10:21pm 10:45pm Aspartate Amino 23 U/L 15-37 08/21/16 08/21/16 Transf (AST/SGOT) 10:21pm 10:45pm Alanine 19 U/L 9-52 08/21/16 08/21/16 Aminotransferase 10:21pm 10:45pm (ALT/SGPT) Alkaline 72 U/L 50-136 08/21/16 08/21/16 Phosphatase 10:21pm 10:45pm Microbiology Results Procedure Source Result Collection Result Date/Time Date/Time MRSA Screen Nares, Right And No Methicillin 08/21/16 11:00pm 08/23/16 9: 46am Left resistant Staph aureus (MRSA) isolated. [facility] Name: RAMANA PITT [place], [place] Physician: EMMANUEL ALDANA Admit: 08/21/16 : 40 Status: ADM IN Room: 323 History and Physical Examination DICTATING PROVIDER: Tj Aldana M.D. DATE: 08/21/2016 CHIEF COMPLAINT: Status-post fall from standing. HISTORY OF PRESENT ILLNESS: Rmaana is a very pleasant, 76 -year-old female who was brought to the Emergency Room by her family after a fall from standing while walking across the street this evening. The patient has a history of dementia and is in assisted living at [facility]. The family denies any other recent history of falls. On presentation to the Emergency Room, the patient had a GCS of 14 due to confusion associated with her dementia. Temperature was 98.4. Blood pressure was 153/90 and pulse was 100. She complained of pain in the left wrist with obvious deformity of the left wrist. She also had a laceration to the temporal skull. On work-up in the ER, plain film of the wrist shows a distal left wrist fracture. Orthopedic surgery has been consulted about this. I was consulted to see the patient for potential admission due to head CT showing a small 2 mm left-sided subdural hematoma in the frontotemporal location. There is no associated mass-effect with this. The patient has maintained her baseline mental status with a GCS of 14 here throughout her ER stay over the last 2 hours. The family said that they would really like her to be admitted here to the hospital for observation. They don't believe they would like to proceed with any sort of surgical care even if her head bleed were to progress and require it. They are, however, considering surgical repair of the left wrist fracture. Again, because of this, I was asked to admit the patient. PAST MEDICAL HISTORY: 1. Hypothyroidism. 2. Dementia. PAST SURGICAL HISTORY: 1. Hysterectomy. 2. Cholecystectomy. 3. Rectocele and cystocele repair. ALLERGIES: 1. Azithromycin. 2. Flexeril. SOCIAL HISTORY: The patient lives in an assisted living facility at [facility]. She denies tobacco, alcohol or drug abuse. REVIEW OF SYSTEMS: Negative other than as in the History of Present Illness and Past Medical History. [facility] Name: RAMANA PITT [place], [place] Physician: EMMANUEL ALDANA Admit: 08/21/16 : 40 Status: ADM IN Room: 323 History and Physical Examination PHYSICAL EXAMINATION: Vital signs: As above. In general, the patient is alert and appropriate, but confused. HEAD: There is a laceration to the right temporal area that has been repaired with margoth per the ER physician. NECK/BACK: No pain in the midline with palpation. CARDIOVASCULAR: Regular rate and rhythm. LUNGS: No labored respirations. ABDOMEN: Soft, nontender and nondistended. EXTREMITIES: There is an obvious deformity at the left wrist with known distal left radius and ulna fracture. The patient has obvious swelling associated with this. There is also ecchymosis on the back of the right hand, but no pain with this. Lower extremities are intact with normal range of motion and good pulses bilaterally. PELVIS: Stable without pain on palpation. NEUROLOGIC: She is at her baseline mental status per the family. Her GCS is 14. Motor and sensory are grossly intact. LABS: Pending. We are checking a CBC, CMP, PTT and INR. ASSESSMENT: 76 -year-old female 1. Status-post fall from standing. 2. Left subdural hematoma with no mass-effect or associated change in GCS/ mental status. 3. Left distal radius fracture. 4. Dementia. 5. Hypothyroidism. PLAN: 1. Left subdural hematoma with no mass-effect or associated change in GCS/ mental status. I had a lengthy discussion with the patient's two daughters who are present in the room. They again voice that they would really like for the patient to be observed in the hospital, if possible, and not be transferred to a facility with neurosurgery coverage, even though if she stays here we would not be able to do anything emergently if she were to Via [facility] Name: RAMANA PITT [place], [place] Physician: EMMANUEL ALDANA Admit: 08/21/16 : 40 Status: ADM IN Room: 323 History and Physical Examination have progression of her subdural hematoma and potential need for neurosurgery. They understand that neurosurgery is not available here. They are not sure they would want to do anything surgically given the patient's underlying dementia if this were to progress. Because of this, we will admit the patient here to the [facility] for close observation and neuro checks. We will repeat a CT scan of the head in the morning. If there has been progression of the bleed on CT, we will have to discuss with family how they wish to proceed at that time. 2. Left distal radius fracture. Orthopedic surgery has been consulted. They recommend placement of a sugar-tong splint which the ER physician will do at this time. 3. Dementia. We will continue the patient's home medications including Namenda and Zoloft. CODE STATUS: The two daughters who are with her are not her actual DPOA. I had them call the daughter who is the DPOA. They are working on straightening out her code status at this time. [id number] cc: Danni Gonzales Signed By: EMMANUEL ALDANA ‚‚‚‚<< Signature on File>> ‚‚08/23/16‚‚/ 1505 Dictated By: EMMANUEL ALDANA ‚‚D/ Transcribed: SAMANTHA POTTER ‚‚ƒ‚‚‚&#[id number] ;ƒ‚‚‚‚D/ 0616 History and Physical Exam End Of Report Procedures No Known History of Procedures. Encounters Encounter Location Arrival/Admit Date Discharge/Depart Date Attending Provider Discharged [facility] 08/21/16 6:31pm 08/24/16 1:31pm EMMANUEL ALDANA [facility] Discharged [facility] 08/21/16 6:31pm 08/21/16 10:45pm EMMANUEL ALDANA [facility] 08/21/16 5:57pm LIZ RODRIGES Clinical EMS Encounter Diagnosis Onset Date Acute subdural hematoma Distal radius fracture, left Fracture of ulnar styloid
--- OUTSIDE RECORDS SUMMARY | 2017-08-16 19:00 | External Medical Summary | Encounter Summary ---
:1940 Author Organization [facility] Address [address] [place] [address] Phone Care Team Providers Name Role Phone Danni Gonzales MD Primary Care Provider Reason for Visit Reason Comments Leg Pain left Encounter Details Date Type Department Care Team Description 07/11/2017 Office Visit Fortunato Barlow, Closed nondisplaced Orthopedics & MD bicondylar fracture of Sports Medicine [address] left tibia with routine [address] [address] healing, [place] [address] encounter (Primary Dx) [phone] Social History Tobacco Use Types Packs/Day Years Used Date Never Assessed Sex Assigned at Date Recorded Not on file as of this encounter Progress Notes Fortunato Greene MD - 07/11/2017 2:00 PM CSTFormatting of this note may be different from the original. [facility] [address] [address] Patient: Winter Isbell : 1940 Date: 07/11/2017 Procedure: March 25, 2017 open reduction internal fixation of left tibial plateau fracture Interval History: Winter Isbell is a 77 y.o. female who presents for surgical follow up. She is now 3-1/2 months out from operative repair of her left tibial plateau fracture. She has advanced dementia. She does very little weightbearing on her own without assistance presently. She is accompanied to clinic by her family today. They report that she's been complaining of some mild aching sensation around her knee in the last week or so which I think is likely related to the weather. She's not had any erythema drainage or other signs of infection about her incision. She has had decreased physical therapy in the last several weeks as her therapy has run out and she has plateaued in progress. Medical History The Patient's past medical, surgical, family and social histories were reviewed and have been updated where appropriate. Review of Systems: A 14 point review of systems was conducted and is negative except for that which is listed above in the HPI. Phsyical Exam Vital Signs: There were no vitals taken for this visit. General: Well developed Well nourished and in no acute distress Musculoskeletal: On exam today she reaches about 45 of flexion. She has full extension. She does have intact ankle and great toe dorsiflexion. She does not appear to have any sensory deficit. Her incision is healed beautifully. The limb is warm pink and well-perfused. X-rays demonstrate that the patient is healing appropriately Assessment/Plan Winter Isbell is a 77 y.o. female who is now 3-1/2 months out from operative repair of a bicondylar tibial plateau fracture 1. She may be weightbearing as tolerated 2. She no longer needs the brace 3. I recommend that she continue physical therapy for range of motion exercises and gait training 4. It's very long drive for them to come down here some of the transition him to as needed follow-up. They will give me a call if they have any other questions or concerns and we are always happy to see them. 5. I think she's made good progress for her current functional level. While she doesn't have the full flexion that I like to see it'll be gets going to inhibit her daily living Follow up: Return if symptoms worsen or fail to improve. FORTUNATO GREENE MD Electronically Signed 07/11/2017 Division of [facility] [email or web address] [email or web address] in this encounter Plan of Treatment Not on fileas of this encounter Visit Diagnoses Diagnosis Closed nondisplaced bicondylar fracture of left tibia with routine healing, subsequent encounter - Primary
--- OUTSIDE RECORDS SUMMARY | 2017-08-16 19:00 | External Medical Summary | Encounter Summary ---
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
--- OUTSIDE RECORDS SUMMARY | 2017-08-16 19:00 | External Medical Summary | Continuity of Care Document ---
:1940 Author Organization [facility]. Care Team Providers Name Role Phone Danni Gonzales MD Primary Care Physician Insurance Providers Payer Name Policy Number Subscriber Name Relationship MEDICARE INPT & OUTPT [id number] RAMANA PITT SELF / SAME PATIENT [facility] [id number] RAMANA PITT SELF / SAME PATIENT Chief Complaint and Reason for Visit Reason [...] PO PRN SEVERE 0.5 MG TABLET AGITATION Acetaminophen 650 MG PO Every six hours Hold per patient (Tylenol) 325 MG PRN pain request for TABLET choice of OTC or fill as prescription. Eye Formula 1 TAB PO Once a day Multivit/mineral (Ocuvite) 1 TAB TABLET HYDROcodone/Acetam 1-2 TAB PO Q4-6 HR PRN inophen (Deary) NEEDED FOR PAIN 7.5 MG/325 MG TABLET Levothyroxine 0.025 MG PO Once a day (Synthroid) 0.025 MG TABLET Memantine XR 28 MG PO Once a day (Namenda XR) 28 MG CAPSULE Sertraline 50 MG PO Once a day (Zoloft) 50 MG TABLET Vitamin D (Kev 2,000 [...] of Care Discharge Date 08/24/16 Disposition 03-XFER HALF-WAY FAC Prescriptions See Medications Section Functional Status Query Response Date Recorded Paralysis: N August 30, 2016 12:31pm Steady Gait: N August 24, 2016 8:31am Weakness: Y August 30, 2016 12:31pm 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 Vital Signs Vital Reading Collection Date/Time Result Blood Pressure 08/30/16 4:05pm 124/49 Patient Temperature 08/30/16 4:05pm 97.6 Respiratory Rate 08/30/16 4:05pm 14 Pulse Rate 08/30/16 4:05pm 100 Bedside Pulse Oximetry 08/30/16 4:05pm 93 Height 08/30/16 1:30pm 154.94 cm Height 08/30/16 1:30pm 5 ft 1 in Weight 08/30/16 1:30pm 54.5 kg Weight 08/30/16 1:30pm 119.9 lb 14.9 oz Body Mass Index 08/30/16 1:30pm 22.7 Blood Pressure Source 08/24/16 11:30am Sitting Temperature Source 08/24/16 11:30am Oral Pulse Location 08/24/16 11:30am Dynamap Results Laboratory Results Test Name Result Units [...] 08/23/16 08/23/16 eGFR Interpretation: (Non- 6:04am 8:37am Nepalese Chronic Kidney Disease=CKD CKD STAGE I > [...] 08/21/16 08/21/16 Thromboplastin 10:21pm 10:45pm Time - Ocean Calcium Adjusted 8.5 mg/dL 8.4-10.2 08/21/16 08/21/16 [...] Left resistant Staph aureus (MRSA) isolated. [facility] RAMANA PITT [place], [place] Physician: EMMANUEL ALDANA Admit: 08/21/16 : 40 Status: ADM IN Room: 323 History and Physical Examination DICTATING PROVIDER: Tj Aldana M.D. DATE: 08/21/2016 CHIEF COMPLAINT: Status-post fall from standing. HISTORY OF PRESENT ILLNESS: Ramana is a very pleasant, 76 -year-old female who was brought to the Emergency Room by her family after a fall from standing while walking across the street this evening. The patient has a history of dementia and is in assisted [facility]. The family denies any other recent history [...] lives in an assisted living facility at [facility]. She denies tobacco, alcohol or drug abuse. REVIEW OF SYSTEMS: Negative other than as in the History of Present Illness and Past Medical History. [facility] [place]: [place] Physician: EMMANUEL ALDANA Admit: 08/21/16 : [...] anything emergently if she were to [facility] Name: RAMANA PITT [place], [place] Physician: EMMANUEL ALDANA Admit: 08/21/16 : [...] will admit the patient here to the [facility] for close observation and neuro checks. [...] out her code status at this time. [id number] cc: Danni Gonzales Signed By: EMMANUEL ALDANA ‚‚‚‚<< Signature on File>> ‚‚08/23/16‚‚/ 1505 Dictated By: EMMANUEL ALDANA ‚‚D/ 14 Transcribed: SAMANTHA POTTER ‚‚ƒ‚‚‚&#8218 ;ƒ‚‚‚‚D/ 0616 History and Physical Exam End Of Report Procedures Procedure Status Date Provider(s) REPAIR SCALP SKIN, EXTERNAL APPROACH Completed 08/21/16 LIZ RODRIGES Encounters Encounter Location Arrival/Admit Date Discharge/Depart Date Attending Provider Departed [facility] 08/30/16 11:10am 08/30/16 5:35pm Leonel Abdalla [facility] Discharged [facility] 08/21/16 6:31pm 08/24/16 1:31pm JOVAN, [facility] Discharged [facility] 08/21/16 6:31pm 08/21/16 10:45pm JOVAN [facility] Registered [facility] 08/21/16 5:57pm LIZ RODRIGES Clinical EMS Encounter Diagnosis Onset Date Acute subdural hematoma Distal radius fracture, left Fracture of ulnar styloid
--- OUTSIDE RECORDS SUMMARY | 2017-08-16 19:00 | External Medical Summary | Encounter Summary ---
:1940 Author Organization [facility] Address [address] [place] [address] Phone Care Team Providers Name Role Phone Danni Gonzales MD Primary Care Provider Reason for Visit Reason Comments Leg Pain left Encounter Details Date Type Department Care Team Description 05/30/2017 Office Visit Fortunato Barlow, Closed fracture of multiple ribs of right side, initial encounter (Primary Dx); Orthopedics & MD Closed nondisplaced bicondylar fracture of left tibia with routine healing, subsequent encounter Sports Medicine [address] [facility] [address] [address] [place] [address] [phone] Social History Tobacco Use Types Packs/Day Years Used Date Never Assessed Sex Assigned at Date Recorded Not on file as of this encounter Progress Notes Fortunato Greene MD - 05/30/2017 11:30 AM CSTFormatting of this note may be different from the original. [facility] [address] [address] Patient: Winter Isbell : 1940 Date: 05/30/2017 Procedure: March 25, 2017 open reduction internal fixation of a left tibial plateau fracture Interval History: Winter Isbell is a 77 y.o. female who presents for surgical follow up. She is doing excellent. Her pain is been well-controlled. She has reportedly been working on range of motion with physical therapy at the facility. She's not had any new or acute events. There is no sign of any erythema drainage or other signs of infection. She is accompanied to clinic today by HER-2 daughters. Medical History The Patient's past medical, surgical, [...] and in no acute distress Musculoskeletal: On x-ray today she has intact passive knee flexion and extension. Incision is beautifully healed. She reports normal sensation on the thigh knee and lower leg. She can perform ankle and great toe dorsiflexion and plantar flexion. She does continue to have a little bit of swelling. X-rays in clinic today demonstrate that she's maintained her alignment and is consolidating her fractures appropriately Assessment/Plan Winter Isbell is a 77 y.o. female who is healing appropriately about 9 weeks out from operative repair of a left tibial plateau fracture 1. We will start her on weightbearing as tolerated with assistance for transfers 2. She may then progress to weightbearing as tolerated for all other activities 3. When she is getting up and about she needs to have a hinged knee brace on 4. If she is resting and that she does not need to have the hinged knee brace on. 5. Follow up in 6 weeks with new x-rays including 2 views of the left knee 6. Call with questions or concerns Follow up: Return in about 6 weeks (around 07/11/2017). FORTUNATO GREENE MD Electronically Signed 05/30/2017 Division of [facility] [email or web address] in this encounter Plan of Treatment Not on fileas of this encounter Visit Diagnoses Diagnosis Closed fracture of multiple ribs of right side, initial encounter - Primary Closed nondisplaced bicondylar fracture of left tibia with routine healing, subsequent encounter
--- OUTSIDE RECORDS SUMMARY | 2017-08-16 19:00 | External Medical Summary ---
:1940 Author Organization [facility], [facility] Address [address] [place], [place] [address] Care Team Providers Name Role Phone JEROME MENCHACA Unavailable Unavailable PROBLEMS Type Condition ICD9-CM Code [id number] Onset Condition SNOMED Code Code Dates Status Problem Osteoporosis - M81.0 20 September, Active 755077933 fragility fracture 2016August 2016 Problem Chronic depression F34.1 09 Aug, Active 96341606 - GDS 1 (Apr 2015) 2014 Problem Obstructive sleep G47.33 09 Aug, Active 89996770 apnea - does not 2014 wear CPAP Problem CKD 3- CrCl 54 N18.3 20 September, Active 313946807 (August 2016) 2017 Problem Obstructive sleep G47.33 09 Aug, Active 02288402 apnea 2014 Problem Hypothyroidism E03.9 09 Aug, Active 03106824 2014 Problem Stage 3 chronic N18.3 20 September, Active 488555236 kidney disease 2017 Problem Dementia - SLUMS 12 F03.90 09 Aug, Active 03513681 (Apr 2015) 2014 Problem Chronic depression F34.1 09 Aug, Active 596962080 2014 Problem Dementia F03.90 09 Aug, Active 12403587 2014 ALLERGIES No Information ENCOUNTERS Encounter Location Date Diagnosis [facility], [address] [place] [address], Jun, [facility] [phone] [facility], [address] [place] [address], May, [facility] [phone] [facility], [address] [place] [address], May, [facility] [phone] [facility], [address] [place] [address], Mar, [facility] [phone] [facility], [address] [facility], Feb, [facility] [phone] [facility], [address] [place] [address], Dec, [facility] [id number] [facility], [address] [facility] [facility], September, [place] [phone] [facility], [address] [facility], Aug, [place] [phone] [facility], [address] [facility], Jul, [place] [phone] [facility], [address] [facility], Jun, [place] [phone] [facility], [address] [facility], Jun, [place] [phone] [facility], [address] [facility], May, [place] [phone] [facility], [address] [facility], Apr, [place] [phone] [facility] [address] [facility], Nov, [place] [phone] [facility], [address] [facility], Oct, [place] [phone] [facility], [address] [facility], Oct, [place] [phone] [facility], [address] [facility], Jul, [place] [phone] [facility], [address] [facility], Jun, [place] [phone] [facility], [address] [facility], May, [place] [phone] [facility], [address] [facility], Apr, [place] [phone] [facility], [address], September, [place] [phone] [facility], [address] [facility], Mar, [place] [phone] [facility], [address] [facility], Mar, [place] [phone] [facility], [address], Dec, [place] [phone] [facility], [address] [facility], Nov, [place] [phone] [facility], [address] [facility], September, [facility] [place] [phone] [facility], [address] [facility], Aug, [facility] [place] [phone] [facility], [address] [facility], Aug, [facility] [place] [phone] [facility], [address] [facility], May, [facility] [place] [phone] [facility], [address] [facility], Apr, [facility] [place] [phone] [facility], [facility], Feb, [facility] [place] [phone] IMMUNIZATIONS No Known Immunizations SOCIAL HISTORY Never Assessed REASON FOR VISIT AWV ? PLAN OF CARE VITAL SIGNS MEDICATIONS Unknown Medications RESULTS No Results PROCEDURES No Known procedures INSTRUCTIONS MEDICATIONS ADMINISTERED No Known Medications
--- OUTSIDE RECORDS SUMMARY | 2017-08-16 19:00 | External Medical Summary | Encounter Summary ---
:1940 Author Organization [facility] Address [address] [place] [address] Phone Care Team Providers Name Role Phone Danni Gonzales MD Primary Care Provider Encounter Details Date Type Department Care Team Description 05/30/2017 Imaging [place] X-Ray - Nima Gamino, Closed nondisplaced Orthopedics bicondylar fracture of [address] left tibia with routine [place] [address] [place] [address] healing, subsequent [phone] encounter Social History Tobacco Use Types Packs/Day [...] and the tibia are noted Procedure Note Fabio, Rad Results In - 06/08/2017 9:27 AM 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
--- OUTSIDE RECORDS SUMMARY | 2017-08-16 19:01 | External Medical Summary | Continuity of Care Document ---
:1940 Author Organization [facility] Allergies Active Description Code Type Severity Reaction Onset Reported/ Identified Relationship Clinical to Patient Status Yes NO NAME 71049 DRUG N/A N/A AVAILABLE Yes ARICEPT 64561 Drug N/A dizziness 01539 Aller , tremor 0 gy Yes ZITHROMAX Drug N/A N/A (RASH) Aller gy Yes azithromycin Drug Unknown Rash 04/19/2013 Aller gy Yes AZITHROMYCIN 66820 DRUG Low Rash 03/22/2017 INGRE 2016 DI Yes CYCLOBENZAPR 00366 DRUG Low Rash 03/22/2017 INE INGRE 2016 DI Yes azithromycin F0060 Drug Unknown N/A 03/22/2017 77283 Aller gy Yes cyclobenzapr F0060 Drug Unknown RASH 03/22/2017 ine 41813 Aller gy Medications Medication Packaging Start Stop Route Dosage Sig Date Date OCUVITE Oral Oral 6 017 daily Oral Oral 50 SERTRALINE HCL 7 017 Oral Oral 25 LEVOTHYROXINE 7 017 SODIUM VITAMIN Oral Oral 2000 D3 7 017 NAMENDA Oral Oral 28 XR 7 017 XANAX ORAL ORAL 0.25 7 daily FOSAMAX ORAL ORAL 70 7 every week VITAMIN Oral Oral 2000 D3 7 Oral Oral OCUVITE-LUTEIN 7 017 daily Oral Oral 50 SERTRALINE HCL 7 017 Oral Oral 25 LEVOTHYROXINE 7 017 SODIUM NAMENDA Oral Oral 28 XR 7 Oral Oral 25 LEVOTHYROXINE 7 017 SODIUM Oral Oral 50 SERTRALINE HCL 7 Oral Oral OCUVITE-LUTEIN 7 daily Oral Oral 25 LEVOTHYROXINE 7 SODIUM Intravenous 0.1 NALOXONE HCL 0.4 7 PRN MG/ML IJ SOLN Rectal 650 ACETAMINOPHEN 650 7 EVERY 6 HOURS MG RE SUPP PRN Intravenous 1000 ACETAMINOPHEN 10 7 EVERY 6 HOURS MG/ML IV SOLN PRN Oral 650 ACETAMINOPHEN 325 7 EVERY 6 HOURS MG PO TABS PRN Intravenous 4 ONDANSETRON HCL 4 7 EVERY 4 HOURS MG/2ML IJ SOLN PRN Oral 4 ONDANSETRON 4 MG PO 7 EVERY 4 HOURS TBDP PRN ALUM T Oral 30 MAG 7 EVERY 6 HOURS HYDROXIDE-SIMETH PRN 200-200-20 MG/5ML PO SUSP Oral 2 2 SENNOSIDES-DOCUSATE 7 TIMES DAILY SODIUM 8.6-50 MG PO TABS Intravenous 20 2 FAMOTIDINE IN NACL 7 TIMES DAILY 20-0.9 MG/50ML-% IV SOLN Intravenous LACTATED RINGERS IV 7 CONTINUOUS SOLN Oral 20 2 FAMOTIDINE 20 MG PO 7 TIMES DAILY TABS Oral 5 BISACODYL 5 MG PO 7 DAILY PRN TBEC Rectal 10 BISACODYL 10 MG RE 7 DAILY PRN SUPP Oral 17 POLYETHYLENE GLYCOL 7 DAILY PRN 3350 PO PACK Oral 100 2 DOCUSATE SODIUM 100 7 TIMES DAILY MG PO CAPS Oral 28 MEMANTINE HCL ER 28 7 DAILY MG PO CP24 Intravenous 1 CEFTRIAXONE 7 EVERY 24 SODIUM-DEXTROSE HOURS 1-3.74 GM-% IV SOLR Oral 25 LEVOTHYROXINE 7 EVERY MORNING SODIUM 25 MCG PO BEFORE TABS BREAKFAST Oral 50 SERTRALINE HCL 50 7 DAILY MG PO TABS VITAMIN Oral 1000 D 1000 UNITS PO 7 DAILY TABS Intravenous 20 FAMOTIDINE IN NACL 7 DAILY 20-0.9 MG/50ML-% IV SOLN Oral 20 FAMOTIDINE 20 MG PO 7 DAILY TABS Intravenous 1000 LACTATED RINGERS IV 7 CONTINUOUS SOLN Intravenous LIDOCAINE HCL 1 7 PRN % IJ SOLN Intravenous PROPOFOL 200 7 PRN MG/20ML IV EMUL Intravenous ROCURONIUM BROMIDE 7 PRN 50 MG/5ML IV SOLN Intravenous PHENYLEPHRINE 7 PRN HCL-NACL (PF) 1-0.9 MG/10ML-% IV SOSY Intravenous DEXAMETHASONE 7 PRN SODIUM PHOSPHATE 4 MG/ML IJ SOLN Intravenous ONDANSETRON HCL 4 7 PRN MG/2ML IJ SOLN VANCOMYCIN HCL 1000 7 PRN MG IV SOLR SODIUM CHLORIDE 0.9 % 7 PRN IRRIGATION SOLN (SUPPLY) BACITRACIN ZINC 500 7 PRN UNIT/GM EX OINT Intravenous 4 ONDANSETRON HCL 4 7 ONCE PRN MG/2ML IJ SOLN Oral 4 ONDANSETRON 4 MG PO 7 ONCE PRN TBDP Intravenous 0.2 NALOXONE HCL 0.4 7 ONCE PRN MG/ML IJ SOLN Intravenous 0.1 NALOXONE HCL 0.4 7 PRN MG/ML IJ SOLN Intravenous 4 ONDANSETRON HCL 4 7 EVERY 6 HOURS MG/2ML IJ SOLN PRN Intravenous 25 DIPHENHYDRAMINE HCL 7 EVERY 6 HOURS 50 MG/ML IJ SOLN PRN Oral 25 DIPHENHYDRAMINE HCL 7 EVERY 6 HOURS 25 MG PO CAPS PRN Oral 1 2 SENNOSIDES-DOCUSATE 7 TIMES DAILY SODIUM 8.6-50 MG PO TABS ASPIRIN Oral 325 2 325 MG PO TABS 7 TIMES DAILY Intravenous 4 ONDANSETRON HCL 4 7 EVERY 6 HOURS MG/2ML IJ SOLN PRN Oral 4 ONDANSETRON 4 MG PO 7 EVERY 6 HOURS TBDP PRN Intravenous 200 CIPROFLOXACIN IN 7 EVERY 12 D5W 200 MG/100ML IV HOURS SOLN Oral 100 2 DOCUSATE SODIUM 50 7 TIMES DAILY MG/5ML PO LIQD Subcutaneous 40 ENOXAPARIN SODIUM 7 DAILY 40 MG/0.4ML SC SOLN Oral 250 CIPROFLOXACIN HCL 7 EVERY 12 250 MG PO TABS HOURS SCHEDULED Oral 0.4 TAMSULOSIN HCL 0.4 7 DAILY MG PO CAPS Problems Date Dx Attending Type Code Diagnosis Diagnosed By Coded 09/12/2012 SKIP GONZALEZ MD 272.4 HYPERLIPIDEMIA W NEC/NOS 09/12/2012 SKIP GONZALEZ MD V58.69 SUBSCRIPTION CLERK MEDICATION W USE 11/05/2012 Kiersten EARL III, DO V76.12 OT SCREEN MAMMOGRAM HUGH Chaney 11/09/2012 EARL Kiersten DICKSON DO 733.00 OSTEOPOROSIS NOS HUGH Chaney 02/28/2013 Kiersten EARL III, DO 245.9 THYROIDITIS NOS HUGH Chaney 02/28/2013 EARLKiersten CAMPOS III, DO 427.5 CARDIAC ARREST HUGH Chaney 02/28/2013 E[facility] Kiersten CHERRY 783.21 LOSS OF WEIGHT HUGH Chaney 04/11/2013 Kiersten BOLANOS MD 596.89 BLADDER DISORDER NEC COBB 04/22/2013 Kiersten BOLANOS MD 599.70 HEMATURIA NOS COBB 04/25/2013 Kiersten EARL III, DO 244.9 HYPOTHYROIDISM NOS HUGH Chaney 05/31/2013 EARL Kiersten DICKSON DO 298.9 PSYCHOSIS NOS HUGH J 05/31/2013 [facility] Kiersten CHERRY 780.4 DIZZINESS AND HUGH J GIDDINESS 06/01/2013 EARL Kiersten DICKSON DO 298.9 PSYCHOSIS NOS HUGH J 06/01/2013 [facility] Kiersten CHERRY 780.4 DIZZINESS AND HUGH J GIDDINESS 06/28/2014 Janet BHATIA, W 244.9 Danni 06/28/2014 Janet BHATIA, W 290.0 Danni 06/28/2014 Janet BHATIA, A 427.9 Danni 06/28/2014 Janet BHATIA, W 788.41 Danni 06/30/2014 Janet BHATIA, W 244.9 Danni 06/30/2014 Janet BHATIA, W 290.0 Danni 06/30/2014 Janet BHATIA, A 427.9 Danni 06/30/2014 Janet BHATIA, W 788.41 Danni 09/23/2014 Janet BHATIA, W 244.9 Danni 09/23/2014 Janet BHATIA, W 290.0 Danni 09/23/2014 Janet BHATIA, A 427.9 Danni 09/23/2014 Janet BHATIA, W 788.41 Danni 10/07/2014 Janet BHATIA, A 788.31 Danni 10/07/2014 Janet BHATIA, A 788.41 Danni 10/09/2014 Janet MD, A 788.41 Danni 10/24/2014 Janet MD, A 788.41 Danni 10/29/2014 Janet MD, A 788.41 Danni 11/06/2014 Janet MD, A 788.41 Danni 11/06/2014 Janet MD, A 788.41 Danni 11/10/2014 Janet MD, A 788.41 Danni 11/11/2014 Janet MD, A 788.41 Danni 11/12/2014 Janet MD, A 788.41 Danni 11/19/2014 Janet MD, W 244.9 Danni 11/19/2014 Janet BHATIA, W 290.0 Danni 11/19/2014 Janet BHATIA, A 427.9 Danni 11/19/2014 Janet BHATIA, W 788.41 Danni 11/19/2014 Janet BHATIA, A 788.41 Danni 11/19/2014 Janet BHATIA, A 788.41 Danni 11/27/2014 Janet BHATIA, A 788.41 Danni 11/27/2014 Janet BHATIA, A 788.41 Danni 12/08/2014 Janet BHATIA, A 788.41 Danni 12/11/2014 Janet BHATIA, A 788.41 Danni 12/13/2014 Janet BHATIA, A 788.41 Danni 12/30/2014 Janet BHATIA, A 788.41 Danni 12/30/2014 Janet BHATIA, A 788.41 Danni 01/05/2015 Janet BHATIA, A 788.41 Danni 04/09/2015 Janet BHATIA, A R35.0 Danni 04/11/2015 Janet BHATIA, A R35.0 Danni 04/27/2015 Janet BHATIA, A R35.0 Danni 07/05/2016 Jaya Tejada Z01.89 ENCOUNTER FOR OTHER SPECIFIED SPECIAL EX 07/06/2016 Jaya Tejada Z01.89 ENCOUNTER FOR OTHER SPECIFIED SPECIAL EX 07/07/2016 Jaya Tejada Z01.89 ENCOUNTER FOR OTHER SPECIFIED SPECIAL EX 07/22/2016 Yung Gonzales MD Z01.89 ENCOUNTER FOR OTHER Danni SPECIFIED SPECIAL EX 08/21/2016 Jaya Tejada Z01.89 ENCOUNTER FOR OTHER SPECIFIED SPECIAL EX 08/21/2016 Yung Gonzales MD Z01.89 ENCOUNTER FOR OTHER Danni SPECIFIED SPECIAL EX 08/24/2016 EMMANUEL ALDANA E03.9 HYPOTHYROIDISM, UNSPECIFIED 08/24/2016 JOVANEMMANUEL F03.90 UNSPECIFIED DEMENTIA WITHOUT BEHAVIORAL 08/24/2016 JOVANEMMANUEL S01.01XA LACERATION WITHOUT FOREIGN BODY OF SCALP 08/24/2016 JOVAN EMMANUEL Barragan S06.5X0A TRAUM SUBDR HEM W/O LOSS OF CONSCIOUSNES 08/24/2016 JOVANEMMANUEL S52.501A UNSP FRACTURE OF THE LOWER END OF RIGHT 08/24/2016 JOVAN EMMANUEL Awan S52.532A COLLES' FRACTURE OF LEFT RADIUS, INIT FO 08/24/2016 EMMANUEL ALDANA W19.XXXA UNSPECIFIED FALL, INITIAL ENCOUNTER 08/24/2016 EMMANUEL ALDANA Lv Y92.[address] 08/24/2016 JOVAN EMMANUEL Awan Z66 DO NOT RESUSCITATE 08/30/2016 Leonel Abdalla I49.5 SICK SINUS SYNDROME 08/30/2016 Leonel Abdalla S52.532A COLLES' FRACTURE OF LEFT RADIUS, INIT FO 08/30/2016 Leonel Abdalla W18.39XA OTHER FALL ON SAME LEVEL, INITIAL ENCOUN 08/30/2016 Leonel Abdalla Y92.[address] [facility] [address] AND [address]AY [address] 08/30/2016 Leonel Abdalla Y93.01 ACTIVITY, WALKING, MARCHING AND HIKING 03/22/2017 Jaya Tejada Z01.89 ENCOUNTER FOR OTHER SPECIFIED SPECIAL EX 03/22/2017 Janet BHATIA, A Z01.89 ENCOUNTER FOR OTHER Danni SPECIFIED SPECIAL EX 03/22/2017 LIZ RODRIGES S01.01XA LACERATION WITHOUT FOREIGN BODY OF SCALP 03/22/2017 LIZ RODRIGES S01.81XA LACERATION W/O FOREIGN BODY OF OTH PART 03/22/2017 ANTELMOLIZ S09.90XA UNSPECIFIED INJURY OF HEAD, INITIAL ENCO 03/22/2017 ANTELMO LIZ Grigsby S22.41XA MULTIPLE FRACTURES OF RIBS, RIGHT SIDE, 03/22/2017 ANTELMO LIZ Grigsby S82.102A UNSP FRACTURE OF UPPER END OF LEFT TIBIA 03/22/2017 LIZ RODRIGES S82.832A OTH FRACTURE OF UPPER AND LOWER END OF L 03/22/2017 ANTELMO LIZ Grigsby W10.9XXA FALL (ON) (FROM) UNSPECIFIED STAIRS AND 03/22/2017 LIZ RODRIGES Y92.[address] IN UNSP NON-INSTITUT (PRIVATE 03/22/2017 LIZ RODRIGES Z23 ENCOUNTER FOR IMMUNIZATION 03/28/2017 CLARE NAJERA V N39.0 Urinary tract CLARE NAJERA infection, site not ANNALEE specified 03/28/2017 CLARE NAJERA V S22.41XD Multiple fractures CLARE NAJERA of ribs, right side, ANNALEE subsequent encounter for fracture with routine healing 03/28/2017 CLARE NAJERA P S82.409A Unspecified fracture CLARE NAJERAIAN of shaft of ANNALEE unspecified fibula, initial encounter for closed fracture 04/25/2017 PEGGY, KAMILA L V 521000 Leg Pain 04/25/2017 PEGGY, KAMILA L V M25.572 Pain in left ankle and joints of left foot 04/25/2017 KAMILA WOODS L V S82.145D Nondisplaced bicondylar fracture of left tibia, subsequent encounter for closed fracture with routine healing 04/25/2017 PEGGY, KAMILA L V S82.402D Unspecified fracture of shaft of left fibula, subsequent encounter for closed fracture with routine healing 04/25/2017 V M25.572 Pain in left ankle and joints of left foot 04/25/2017 V S82.402D Unspecified fracture of shaft of left fibula, subsequent encounter for closed fracture with routine healing 04/25/2017 V S62.91XA Unspecified fracture of right wrist and hand, initial encounter for closed fracture 04/25/2017 V S62.92XA Unspecified fracture of left wrist and hand, initial encounter for closed fracture 05/30/2017 FORTUNATO GREENE V 852077 Leg Pain 05/30/2017 FORTUNATO GREENE V S22.41XA Multiple fractures of ribs, right side, initial encounter for closed fracture 05/30/2017 FORTUNATO GREENE V S82.145D Nondisplaced bicondylar fracture of left tibia, subsequent encounter for closed fracture with routine healing 05/30/2017 V S82.145D Nondisplaced bicondylar fracture of left tibia, subsequent encounter for closed fracture with routine healing 07/11/2017 FORTUNATO GREENE V 911143 Leg Pain 07/11/2017 FORTUNATO GREENE V S82.145D Nondisplaced bicondylar fracture of left tibia, subsequent encounter for closed fracture with routine healing Procedures Code Description Performed By Performed On ROUTINE VENIPUNCTURE SKIP GONZALEZ MD 09/12/2012 12191 ASSAY OF MAGNESIUM SKIP GONZALEZ MD 09/12/2012 32909 COMP SCREEN MAMMOGRAM [facility], 11/05/2012 39216 ADD-ON HUGH J [facility], 11/05/2012 G0202 SCREENINGMAMMOGRAPHYDIGITAL HUGH J THER/PROPH/DIAG INJ, [facility], 11/09/2012 77525 SC/IM HUGH J OFFICE/OUTPATIENT VISIT, [facility], 11/09/2012 68081 EST HUGH J DENOSUMAB INJECTION [facility], 11/09/2012 J0897 HUGH J ROUTINE VENIPUNCTURE [facility], 02/28/2013 14811 HUGH J US EXAM, PELVIC, [facility], 02/28/2013 70110 COMPLETE HUGH J METABOLIC PANEL TOTAL CA [facility], 02/28/2013 66989 HUGH J URINALYSIS, AUTO W/SCOPE [facility], 02/28/2013 26413 HUGH J ASSAY OF TOTAL THYROXINE [facility], 02/28/2013 84562 HUGH J ASSAY THYROID STIM [facility], 02/28/2013 03269 HORMONE HUGH J COMPLETE CBC W/AUTO DIFF [facility], 02/28/2013 58750 WBC HUGH J MICROSOMAL ANTIBODY [facility] DO, 02/28/2013 36764 HUGH J THYROGLOBULIN ANTIBODY [facility] DO, 02/28/2013 56530 HUGH J SPECIMEN HANDLING [facility] DO, 02/28/2013 30179 HUGH J URINALYSIS, AUTO W/SCOPE LUIS MIGUEL BHATIA, REZA 04/11/2013 05183 M ROUTINE VENIPUNCTURE LUIS MIGUEL BHATIA, ERZA 04/22/[address] ABD&PELV 1+ LUIS MIGUEL BHATIA, REZA 04/22/2013 93732 SECTION/REGNS M ASSAY OF CREATININE LUIS MIGUEL BHATIA, REZA 04/22/2013 08997 M ASSAY OF UREA NITROGEN LUIS MIGUEL BHATIA, REZA 04/22/2013 77525 M LOCM 300-399MG/ML LUIS MIGUEL BHATIA, REZA 04/22/2013 Q9967 IODINE,1ML M ROUTINE VENIPUNCTURE [facility] DO, 04/25/2013 76408 HUGH J ASSAY OF FREE THYROXINE [facility], 04/25/2013 90283 HUGH J ASSAY THYROID STIM [facility], 04/25/2013 86611 HORMONE HUGH J ROUTINE VENIPUNCTURE [facility] DO, 05/31/2013 50392 HUGH J ASSAY OF CREATININE [facility] DO, 05/31/2013 64814 HUGH J MRI BRAIN W/O & [facility] DO, 06/01/2013 43636 W/DYE HUGH J CRIS-BASE MR CONTRAST [facility] DO, 06/01/2013 A9579 NOS,1ML HUGH J REPAIR SCALP SKIN, 08/21/2016 [id number] EXTERNAL APPROACH Protection Plan Level 2 07/27/2017 V0025 Vision svcs frames 07/27/2017 V2020 purchases Lens spher bifoc plano 07/27/2017 V2200 4.00d Lens sphcyl bifocal 07/27/2017 V2203 4.00d/.1 Lens bifocal add over 07/27/2017 V2220 3.25d Lens, 1.54-1.65 07/27/2017 V2782 p/1.60-1.79g Results Test Result Range Magnesium - 09/12/12 07:00 Magnesium 2.2 MG/DL 1.6-2.3 COMPLETE BLOOD COUNT - 02/28/13 11:27 HGB 14.4 G/DL 12-16 Lymph # 1.7 10^3u 1.0-5.0 Lymph % 23.4 % 20.5-50.0 MCH 28.6 PG 27.0-34.0 MCHC 31.8 G/DL 33.0-35.0 MCV 90.2 FL 80.0-100.0 [place] # 0.6 10^3u 0.1-1.0 [place] % 8.2 % 1.7-10.0 MPV 8.8 FL 7.6-11.0 Platelet 332 10^3u 150-450 RBC 5.03 10^6u 3.5-6.0 RDW 13.0 % 11.6-16.0 Neut # 4.7 10^3u 2.0-8.0 Neut % 66.9 % 42.2-80.0 WBC 7.1 10^3u 3.6-10.0 Baso # 0.0 10^3u 0.0-0.2 Baso % 0.5 % 0.0-2.0 Eos # 0.1 10^3u 0.0-0.4 Eos % 1.0 % 0.0-5.0 HCT 45.4 % 34-48 Urinalysis - 02/28/13 11:27 Squamous Epithelial Cells 0-3 Bilirubin Negative Negative Blood Negative Negative Color Yellow Yellow Glucose Negative Negative Ketones Negative Negative Leukocyte 1+ Negative Nitrite Negative Negative pH 7.5 Urine Appearance Clear Clear Protein Negative Negative Urobilinogen 0.2 0.2-1.0 Urine Bacteria Trace None Seen Urine RBC N0-2 /hpf Specific [place] 1.010 Urine WBC N0-2 /hpf Culture not indicated. CNI Basic Panel - 02/28/13 11:27 Potassium 4.6 MMOLL 3.5-5.1 Sodium 141 MMOLL 137-145 Anion GAP 10 MEQ/L 8-18 Bun/Creat 18.9 RATIO 7-25 BUN 14 MG/DL 7-17 Calcium 9.6 MG/DL 8.4-10.2 Chloride 100 MMOLL 98-107 CO2 31 MMOLL 22-30 Creatinine .8 MG/DL 0.7-1.2 Glucose 90 MG/DL 65-100 TSH - 02/28/13 11:27 TSH 6.86 UIUML 0.33-5.61 T4 Total - 02/28/13 11:27 Free T4 Index TNP T4 Total 6.2 mcg/d 4.5-12.0 Thyroid Antibodies - 02/28/13 11:27 Thyroglobulin Antibodies < 20 IU/mL <20 TPO AB < 10 IU/mL <35 Urinalysis - 04/11/13 16:05 Squamous Epithelial Cells Trace Bilirubin Negative Negative Blood Trace Negative Color Yellow Yellow Glucose Negative Negative Ketones Negative Negative Leukocyte Trace Negative Nitrite Negative Negative pH 7.0 Urine Appearance Clear Clear Protein Negative Negative Urobilinogen 0.2 0.2-1.0 Urine RBC N0-2 /hpf Specific [place] 1.015 Urine WBC N0-2 /hpf BUN - 04/22/13 08:55 BUN 11 MG/DL 7-17 Creatinine - 04/22/13 08:55 Creatinine .7 MG/DL 0.7-1.2 Free T4 - 04/25/13 10:10 Free T4 1.05 NG/DL 0.61-1.12 TSH - 04/25/13 10:10 TSH 1.31 UIUML 0.33-5.61 T4 Total - 04/25/13 10:10 T4 Total 6.1 mcg/d 4.5-12.0 Creatinine - 05/31/13 14:25 Creatinine .7 MG/DL 0.7-1.2 URINALYSIS REFLEX CULTURE - 07/04/16 11:20 COLOR,URINE Yellow BILIRUBIN,URINE Negative NEGATIVE RBC,URINE 2-5 /hpf URINE WBC 10-20 /hpf COLLECTION METHOD CLEAN CATCH URINE KETONE Negative NEGATIVE MUCOUS Present /lpf URINE NITRATE Positive NEGATIVE PH 6 5-8 URINE PROTEIN(semi-quant) Negative NEGATIVE SPECIFIC GRAVITY,URINE 1.015 1.005-1.035 URINE APPEARANCE Hazy URINE BACTERIA Rare /hpf URINE BLOOD Negative NEGATIVE URINE GLUCOSE Negative NEGATIVE URINE LEUKOCYTE ESTERASE 1+ NEGATIVE URINE UROBILINOGEN Negative mg/dL NEGATIVE SQUAMOUS EPITHELIAL 0-2 /hpf URINALYSIS REFLEX CULTURE - 07/20/16 19:15 COLOR,URINE Yellow BILIRUBIN,URINE Negative NEGATIVE RBC,URINE 2-5 /hpf URINE WBC 10-20 /hpf COLLECTION METHOD CLEAN CATCH URINE KETONE Negative NEGATIVE URINE NITRATE Negative NEGATIVE PH 6 5-8 URINE PROTEIN(semi-quant) Negative NEGATIVE SPECIFIC GRAVITY,URINE 1.020 1.005-1.035 URINE APPEARANCE Cloudy URINE BACTERIA Rare /hpf URINE BLOOD Negative NEGATIVE URINE CALCIUM OXALATE CRYSTAL Present /hpf URINE GLUCOSE Negative NEGATIVE URINE LEUKOCYTE ESTERASE Trace NEGATIVE URINE UROBILINOGEN Negative mg/dL NEGATIVE HYALINE CAST 1-3 /lpf SQUAMOUS EPITHELIAL None Seen /hpf COMPLETE BLOOD CT w AutoDiff - 08/21/16 22:21 WHITE BLOOD COUNT 13.6 K/mm3 4.8-10.8 RED BLOOD COUNT 4.19 M/mm3 4.10-5.30 HEMOGLOBIN 12.0 g/dl 12.5-16.0 HEMATOCRIT 36.3 % 37.0-47.0 MEAN CORPUSCULAR VOLUME 87 fl 80.0-100.0 MEAN CORPUSCULAR HEMOGLOBIN 29 pg 27.0-31.0 MEAN CORPUSCULAR HGB CONC 33 g/dl 33.0-37.0 PLATELET COUNT 208 K/mm3 130-400 MEAN PLATELET VOLUME 10.0 fl 7.4-10.4 LYMPHOCYTES % (AUTO) 8.1 % 20.0-51.0 MONOCYTES % (AUTO) 4.8 % 1.7-9.3 EOSINOPHILS % (AUTO) 0.4 % 0-4.0 BASOPHILS % (AUTO) 0.4 % 0.0-2.0 LYMPHOCYTES # (AUTO) 1.1 1.2-3.4 MONOCYTES # (AUTO) 0.7 0.1-0.6 EOSINOPHILS # (AUTO) 0.1 0.0-0.7 BASOPHILS # (AUTO) 0.1 0.0-0.2 GRAN # 11.6 1.4-6.5 GRAN % 85.7 % 42.2-75.2 REDCELL DISTRIBUTION WIDTH-CV 13.6 % 11.5-14.5 COMPREHENSIVE METABOLIC PANEL - 08/21/16 22:21 SODIUM 139 mmol/L 137-145 POTASSIUM 3.8 mmol/L 3.4-5.0 CHLORIDE 103 mmol/L 98-107 CARBON DIOXIDE 24 mmol/L 22-30 ANION GAP 12 mmol/L 7-16 BLOOD UREA NITROGEN 17 mg/dL 7-17 GLUCOSE 138 mg/dL 74-106 CALCIUM 8.3 mg/dL 8.4-10.2 BILIRUBIN,TOTAL 0.6 mg/dL 0.0-1.0 ALKALINE PHOSPHATASE 72 U/L 50-136 ASPARTATE AMINO TRANSFERASE 23 U/L 15-37 ALANINE AMINOTRANSFERASE 19 U/L 9-52 TOTAL PROTEIN 6.3 gm/dL 6.4-8.2 ALBUMIN 3.8 gm/dL 3.5-5.0 CREATININE, serum 0.93 mg/dL 0.52-1.25 ADJUSTED CALCIUM 8.5 mg/dL 8.4-10.2 eGFR 71 eGFR non 59 PROTHROMBIN TIME-PANEL - 08/21/16 22:21 PROTIME WITH INR 12.5 SECONDS 9.7-12.8 INR 1.1 0.8-3.0 PARTIAL THROMBOPLASTIN TIME - 08/21/16 22:21 PARTIAL THROMBOPLASTIN TIME 28.0 SECONDS 26.0-37.[address] w AutoDiff - 08/22/16 05:25 WHITE BLOOD COUNT 12.6 K/mm3 4.8-10.8 RED BLOOD COUNT 3.86 M/mm3 4.10-5.30 HEMOGLOBIN 11.1 g/dl 12.5-16.0 HEMATOCRIT 33.9 % 37.0-47.0 MEAN CORPUSCULAR VOLUME 88 fl 80.0-100.0 MEAN CORPUSCULAR HEMOGLOBIN 29 pg 27.0-31.0 MEAN CORPUSCULAR HGB CONC 33 g/dl 33.0-37.0 PLATELET COUNT 212 K/mm3 130-400 MEAN PLATELET VOLUME 10.6 fl 7.4-10.4 LYMPHOCYTES % (AUTO) 7.1 % 20.0-51.0 MONOCYTES % (AUTO) 5.9 % 1.7-9.3 EOSINOPHILS % (AUTO) 0.2 % 0-4.0 BASOPHILS % (AUTO) 0.3 % 0.0-2.0 LYMPHOCYTES # (AUTO) 0.9 1.2-3.4 MONOCYTES # (AUTO) 0.7 0.1-0.6 EOSINOPHILS # (AUTO) 0.0 0.0-0.7 BASOPHILS # (AUTO) 0.0 0.0-0.2 GRAN # 10.9 1.4-6.5 GRAN % 85.9 % 42.2-75.2 [place] DISTRIBUTION WIDTH-CV 13.5 % 11.5-14.5 BASIC METABOLIC PANEL - 08/22/16 05:25 SODIUM 137 mmol/L 137-145 POTASSIUM 4.1 mmol/L 3.4-5.0 CHLORIDE 103 mmol/L 98-107 CARBON DIOXIDE 24 mmol/L 22-30 ANION GAP 10 mmol/L 7-16 BLOOD UREA NITROGEN 14 mg/dL 7- GLUCOSE 122 mg/dL 74-106 CALCIUM 8.2 mg/dL 8.4-10.2 CREATININE, serum 0.82 mg/dL 0.52-1.25 eGFR 82 eGFR non 68 BASIC METABOLIC PANEL - 08/23/16 06:04 SODIUM 135 mmol/L 137-145 POTASSIUM 3.6 mmol/L 3.4-5.0 CHLORIDE 102 mmol/L 98-107 CARBON DIOXIDE 24 mmol/L 22-30 ANION GAP 9 mmol/L 7-16 BLOOD UREA NITROGEN 8 mg/dL 7-17 GLUCOSE 100 mg/dL 74-106 CALCIUM 8.0 mg/dL 8.4-10.2 CREATININE, serum 0.72 mg/dL 0.52-1.25 eGFR 96 eGFR non 79 COMPLETE BLOOD COUNT (CBC) - 08/23/16 06:04 WHITE BLOOD COUNT 8.8 K/mm3 4.8-10.8 RED BLOOD COUNT 3.69 M/mm3 4.10-5.30 HEMOGLOBIN 10.5 g/dl 12.5-16.0 HEMATOCRIT 32.8 % 37.0-47.0 MEAN CORPUSCULAR VOLUME 89 fl 80.0-100.0 MEAN CORPUSCULAR HEMOGLOBIN 28 pg 27.0-31.0 MEAN CORPUSCULAR HGB CONC 32 g/dl 33.0-37.0 PLATELET COUNT 171 K/mm3 130-400 MEAN PLATELET VOLUME 10.6 fl 7.4-10.4 REDCELL DISTRIBUTION WIDTH-CV 13.7 % 11.5-14.[address] w AutoDiff - 03/22/17 04:57 WHITE BLOOD COUNT 15.8 K/mm3 4.8-10.8 RED BLOOD COUNT 4.17 M/mm3 4.10-5.30 HEMOGLOBIN 12.0 g/dl 12.5-16.0 HEMATOCRIT 36.3 % 37.0-47.0 MEAN CORPUSCULAR VOLUME 87 fl 80.0-100.0 MEAN CORPUSCULAR HEMOGLOBIN 29 pg 27.0-31.0 MEAN CORPUSCULAR HGB CONC 33 g/dl 33.0-37.0 PLATELET COUNT 190 K/mm3 130-400 MEAN PLATELET VOLUME 10.0 fl 7.4-10.4 LYMPHOCYTES % (AUTO) 10.6 % 20.0-51.0 MONOCYTES % (AUTO) 5.0 % 1.7-9.3 EOSINOPHILS % (AUTO) 0.8 % 0-4.0 BASOPHILS % (AUTO) 0.3 % 0.0-2.0 LYMPHOCYTES # (AUTO) 1.7 1.2-3.4 MONOCYTES # (AUTO) 0.8 0.1-0.6 EOSINOPHILS # (AUTO) 0.1 0.0-0.7 BASOPHILS # (AUTO) 0.0 0.0-0.2 GRAN # 13.0 1.4-6.5 GRAN % 82.4 % 42.2-75.2 REDCELL DISTRIBUTION WIDTH-CV 13.8 % 11.5-14.5 COMPREHENSIVE METABOLIC PANEL - 03/22/17 04:57 SODIUM 137 mmol/L 137-145 POTASSIUM 3.8 mmol/L 3.4-5.0 CHLORIDE 104 mmol/L 98-107 CARBON DIOXIDE 26 mmol/L 22-30 ANION GAP 7 mmol/L 7-16 BLOOD UREA NITROGEN 17 mg/dL 7-17 GLUCOSE 110 mg/dL 74-106 CALCIUM 8.8 mg/dL 8.4-10.2 BILIRUBIN,TOTAL 0.4 mg/dL 0.0-1.0 ALKALINE PHOSPHATASE 54 U/L 50-136 ASPARTATE AMINO TRANSFERASE 29 U/L 15-37 ALANINE AMINOTRANSFERASE 32 U/L 9-52 TOTAL PROTEIN 6.1 gm/dL 6.4-8.2 ALBUMIN 3.5 gm/dL 3.5-5.0 CREATININE, serum 0.92 mg/dL 0.52-1.25 ADJUSTED CALCIUM 9.2 mg/dL 8.4-10.2 eGFR 71 eGFR non 59 URINALYSIS REFLEX CULTURE - 03/22/17 07:00 COLOR,URINE Yellow BILIRUBIN,URINE Negative NEGATIVE RBC,URINE 0-2 /hpf URINE WBC 5-10 /hpf COLLECTION METHOD CATHETER URINE KETONE Negative NEGATIVE MUCOUS Present /lpf URINE NITRATE Positive NEGATIVE PH 6 5-8 URINE PROTEIN(semi-quant) Negative NEGATIVE SPECIFIC GRAVITY,URINE 1.015 1.005-1.035 URINE APPEARANCE Hazy URINE BACTERIA None Seen /hpf URINE BLOOD Negative NEGATIVE URINE GLUCOSE Negative NEGATIVE URINE LEUKOCYTE ESTERASE Negative NEGATIVE URINE UROBILINOGEN Negative mg/dL NEGATIVE SQUAMOUS EPITHELIAL 0-2 /hpf CBC WITHOUT DIFFERENTIAL - 03/23/17 07:36 HEMATOCRIT 29.8 % 34.9-44.5 HEMOGLOBIN 9.8 g/dL 12.0-15.5 MEAN CORPUSCULAR HEMOGLOBIN 28.5 pg 26.0-34.0 MEAN CORPUSCULAR HEMOGLOBIN CONC 32.9 g/dL 31.0-37.0 MEAN CORPUSCULAR VOLUME 86.6 fL 81.6-98.3 PLATELET COUNT 160 10E9/L 150-450 RED BLOOD CELL COUNT 3.44 10E12/L 3.90-5.03 RED CELL DISTRIBUTION WIDTH 14.0 % 11.9-15.5 [id number] 9.2 10E9/L 3.5-10.5 TSH - 03/23/17 07:36 TSH 4.665 uIU/mL 0.400-4.000 URINALYSIS WITH MICROSCOPIC - 03/23/17 19:26 APPEARANCE Clear BILIRUBIN UA Negative Negative COLOR Yellow GLUCOSE UA Negative Negative HEMOGLOBIN UA Negative Negative LEUKOCYTE ESTERASE UA 1+ Negative NITRATE UA Negative Negative PH UA 6.5 5.0-8.0 PROTEIN UA Negative Negative RBC UA 0-3 /hpf 0-3 SPECIFIC GRAVITY UA 1.019 1.003-1.030 SQUAMOUS EPITHELIAL Rare /hpf UROBILINOGEN UA 0.2 EU/dL 0.2 WBC UA 4-10 /hpf 0-3 [id number] Negative Negative [id number] 3 /lpf CBC WITH AUTO DIFFERENTIAL - 03/23/17 19:37 BASOPHILS RELATIVE PERCENT 0.3 % 0.0-2.5 EOSINOPHILS RELATIVE PERCENT 0.3 % <=5.0 HEMATOCRIT 27.2 % 34.9-44.5 HEMOGLOBIN 9.0 g/dL 12.0-15.5 LYMPHOCYTES RELATIVE PERCENT 11.2 % 22.0-49.0 MEAN CORPUSCULAR HEMOGLOBIN 28.7 pg 26.0-34.0 MEAN CORPUSCULAR HEMOGLOBIN CONC 33.1 g/dL 31.0-37.0 MEAN CORPUSCULAR VOLUME 86.6 fL 81.6-98.3 MONOCYTES RELATIVE PERCENT 10.4 % 2.0-9.0 NEUTROPHILS RELATIVE PERCENT 77.8 % 40.0-75.0 NUCLEATED RED BLOOD CELLS 0 /100 <=0 PLATELET COUNT 166 10E9/L 150-450 RED BLOOD CELL COUNT 3.14 10E12/L 3.90-5.03 RED CELL DISTRIBUTION WIDTH 14.2 % 11.9-15.5 [id number] 10.8 10E9/L 3.5-10.5 9380527 1.20 10E9/L 0.90-2.90 [id number] 1.12 10E9/L 0.30-0.90 [id number] 0.03 10E9/L 0.05-0.50 [id number] 8.38 10E9/L 1.70-7.00 [id number] 0.03 10E9/L 0.00-0.30 [id number] 0 % T4, FREE - 03/23/17 19:37 FREE T4 1.19 ng/dL 0.70-1.71 EXTRA LIGHT BLUE TOP - 03/23/17 19:37 1324 Extra tube in lab BLOOD CULTURE - 03/23/17 19:46 [id number] No Growth after 5 days incubation BLOOD GAS, ARTERIAL - 03/23/17 19:53 BASE EXCESS ARTERIAL 4 mmol/L -3-3 HCO3 ARTERIAL 28 meq/L 23-27 O2 SATURATION ARTERIAL 99 % 94-100 PCO2 ARTERIAL 39 mm Hg 36-50 PH ARTERIAL 7.47 7.35-7.45 PO2 ARTERIAL 77 mm Hg 80-426 [id number] 1LPM LACTIC ACID, RT - 03/23/17 19:53 LACTIC ACID, RT 1.00 mmol/L 0.50-2.20 BLOOD CULTURE - 03/23/17 19:53 [id number] No Growth after 5 days incubation TROPONIN I - 11/16/17 21:29 TROPONIN I 0.009 ng/mL 0.000-0.040 TROPONIN I - 03/24/17 01:14 TROPONIN I 0.008 ng/mL 0.000-0.040 TROPONIN I - 03/24/17 05:27 TROPONIN I 0.006 ng/mL 0.000-0.040 CBC WITH AUTO DIFFERENTIAL - 03/27/17 00:05 BASOPHILS RELATIVE PERCENT 0.2 % 0.0-2.5 EOSINOPHILS RELATIVE PERCENT 0.8 % <=5.0 HEMATOCRIT 23.3 % 34.9-44.5 HEMOGLOBIN 7.9 g/dL 12.0-15.5 LYMPHOCYTES RELATIVE PERCENT 14.0 % 22.0-49.0 MEAN CORPUSCULAR HEMOGLOBIN 28.9 pg 26.0-34.0 MEAN CORPUSCULAR HEMOGLOBIN CONC 33.9 g/dL 31.0-37.0 MEAN CORPUSCULAR VOLUME 85.3 fL 81.6-98.3 MONOCYTES RELATIVE PERCENT 9.7 % 2.0-9.0 NEUTROPHILS RELATIVE PERCENT 75.3 % 40.0-75.0 NUCLEATED RED BLOOD CELLS 0 /100 <=0 PLATELET COUNT 257 10E9/L 150-450 RED BLOOD CELL COUNT 2.73 10E12/L 3.90-5.03 RED CELL DISTRIBUTION WIDTH 14.6 % 11.9-15.5 [id number] 9.0 10E9/L 3.5-10.5 0423913 1.26 10E9/L 0.90-2.90 9954105 0.87 10E9/L 0.30-0.90 2340018 0.07 10E9/L 0.05-0.50 8527540 6.79 10E9/L 1.70-7.00 7217769 0.02 10E9/L 0.00-0.30 4420624 0 % BASIC METABOLIC PANEL - 03/27/17 00:05 ANION GAP 7 BUN BLOOD 14 mg/dL 6-20 CALCIUM 8.0 mg/dL 8.7-10.5 CHLORIDE 106 mmol/L 99-111 CO2 24 mmol/L 20-36 CREATININE 0.61 mg/dL 0.40-1.10 EGFR > mL/min >59 GLUCOSE 131 mg/dL 74-106 POTASSIUM 3.8 mmol/L 3.6-4.9 SODIUM 137 mmol/L 136-145 CBC WITH AUTO DIFFERENTIAL - 03/27/17 06:20 BASOPHILS RELATIVE PERCENT 0.4 % 0.0-2.5 EOSINOPHILS RELATIVE PERCENT 1.7 % <=5.0 HEMATOCRIT 25.4 % 34.9-44.5 HEMOGLOBIN 8.3 g/dL 12.0-15.5 LYMPHOCYTES RELATIVE PERCENT 13.7 % 22.0-49.0 MEAN CORPUSCULAR HEMOGLOBIN 27.9 pg 26.0-34.0 MEAN CORPUSCULAR HEMOGLOBIN CONC 32.7 g/dL 31.0-37.0 MEAN CORPUSCULAR VOLUME 85.5 fL 81.6-98.3 MONOCYTES RELATIVE PERCENT 9.6 % 2.0-9.0 NEUTROPHILS RELATIVE PERCENT 74.6 % 40.0-75.0 NUCLEATED RED BLOOD CELLS 0 /100 <=0 PLATELET COUNT 276 10E9/L 150-450 RED BLOOD CELL COUNT 2.97 10E12/L 3.90-5.03 RED CELL DISTRIBUTION WIDTH 14.5 % 11.9-15.5 [id number] 8.2 10E9/L 3.5-10.5 3278471 1.13 10E9/L 0.90-2.90 4523466 0.79 10E9/L 0.30-0.90 1845880 0.14 10E9/L 0.05-0.50 2960129 6.13 10E9/L 1.70-7.00 [id number] 0.03 10E9/L 0.00-0.30 7886127 0 % PROCALCITONIN - 03/27/17 06:20 PROCALCITONIN 0.14 ng/ml <=0.09 Encounters ACCT No. Visit Discharge Status Pt. Type Provider Facility Loc./Unit Complaint Date/Time [id number] 04/26/2013 04/26/2013 ISSA Bolanos MD, Erich OSORIO.WKUAGB 418 11:24:00 23:59:59 t [facility] [id number] 03/22/2017 03/22/2017 DIS Emergency ANTELMO, Via [facility] COL.ER 5 04:28:00 07:58:00 [facility] [id number] 08/30/2016 08/30/2016 DIS Outpatien Rm, Via [facility] SDCO SURGERY 2 11:10:00 17:35:00 t [facility] [id number] 08/21/2016 08/24/2016 DIS Inpatient JOVAN, Via [facility] SURG ER ADMIT 2 21:00:00 13:31:00 [facility] [id number] 07/21/2016 07/21/2016 CLS Irwin Gonzales MD, Via [place] LABS 0 08:57:00 23:59:59 t [facility] [id number] 07/04/2016 07/04/2016 CLS Outbharti Tejada, [facility] [place] LAB 9 14:07:00 23:59:59 t Jaya [facility] [id number] 03/25/2015 03/25/2015 CLS Irwin Gonzales MD, [facility] [place]STJ 1 09:23:00 23:59:59 t [facility] [id number] 11/19/2014 11/19/2014 CLS Irwin Gonzales MD, [facility] [place] 8 10:50:00 23:59:59 t [facility] [id number] 10/30/2014 10/30/2014 CLS Irwin Gonzales MD, [facility] [place] 1 12:02:00 23:59:59 t [facility] [id number] 09/23/2014 09/23/2014 CLS Irwin Gonzales MD, [facility] [place] 9 16:44:00 23:59:59 t [facility] [id number] 03/26/2014 03/26/2014 CLS Irwin Gonzales MD, [facility] [place] 7 15:44:00 23:59:59 t [facility] [id number] 06/01/2013 06/01/2013 DIS Outpatien EARL [facility] 00:00:00 00:00:00 chinmay DICKSON DO [facility] J [id number] 05/31/2013 05/31/2013 DIS Outpatien EARL [facility] 00:00:00 00:00:00 chinmay DICKSON DO [facility] Shiv [id number] 04/25/2013 04/25/2013 DIS Outpatien EARL [facility] 00:00:00 00:00:00 chinmay DICKSON DO [facility] Shiv [id number] 04/22/2013 04/22/2013 DIS Outpatisacha BOLANOS MD, [facility] 09:00:00 09:00:00 [facility] [id number] 04/11/2013 04/11/2013 DIS Outpatisacha BOLANOS MD, [facility] 15:58:00 15:59:00 [facility] [id number] 02/28/2013 02/28/2013 DIS Outpatien EARL [facility] 11:24:00 11:24:00 [id number] 11/09/2012 11/09/2012 DIS Outpatien EARL [facility] 10:30:00 10:30:00 [facility] [id number] 11/05/2012 11/05/2012 DIS Outpatien EARL [facility] 09:15:00 09:15:00 [facility] [id number] 09/12/2012 09/12/2012 DIS Outpatisacha GONZALEZ MD, [facility] 07:28:00 07:28:00 [facility] [id number] 03/22/2017 03/22/2017 DIS Outpatien 13:04:59 13:04:59 t [facility] 11/19/2014 ACT Document 10:49:57 Registrat ion [id number] 07/27/2017 Document 00:00:00 Registrat ion [id number] 07/11/2017 07/11/2017 CLS Outpatien Katie GREENE 1 14:03:26 23:59:59 t [facility] [id number] 07/11/2017 07/11/2017 CLS Outpatien Katie SINGLETON 9 13:47:11 23:59:59 t [facility] [id number] 05/30/2017 05/30/2017 CLS Outpatien [place] KZXRY 8 11:19:54 23:59:59 t [facility] [id number] 05/30/2017 05/30/2017 CLS Outpatien RAMONA Katie KZOR 7 11:15:39 23:59:59 t FORTUNATO Awan [facility] [id number] 04/25/2017 04/25/2017 CLS Outpatien [place] KZXRY 9 10:45:05 23:59:59 t [facility] [id number] 04/25/2017 04/25/2017 CLS Outpatien [place] KZXRY 7 10:12:14 23:59:59 t [facility] [id number] 04/25/2017 04/25/2017 CLS Outpatien Katie WOODS KZOR 5 09:55:13 23:59:59 t KAMILA Anna [facility] [id number] 04/25/2017 04/25/2017 CLS Outpatien Katie GARCIA KZOR 9 09:37:50 23:59:59 t LIANNA [facility] [id number] 03/22/2017 03/28/2017 DIS Inpatient Katie NAJERA 4W 8 09:18:41 13:21:00 [facility] [id number] 03/22/2017 Document 11:11:12 Registrat ion
[2017-08-16] MEDS: NS 500 ML IV SCH (19:04)
[2017-08-16] MEDS ORDERED: BISACODYL 10 MG SUPPOSITORY RECTALLY PRN (20:48)
[2017-08-16] MEDS ORDERED: ACETAMINOPHEN 120 MG SUPPOSITORY PR PRN (21:03)
[2017-08-16] MEDS ORDERED: ONDANSETRON 4 MG/2 ML INJECTION IVP PRN (21:03)
[2017-08-16 21:05] VITALS: BMI 18.1
[2017-08-16] MEDS ORDERED: FALL RISK - PHARMACY CONSULT MC ONE (21:16)
[2017-08-16] MEDS: NS 1,000 ML IV SCH (21:28)
--- NOTE | 2017-08-16 22:42 | History & Physical Report ---
History of Present Illness Date: 08/17/17 Chief complaint: Seizure HPI: Ms Isbell is a 77 year old female who has presented to the emergency department this evening with reports of seizure-like activity. She was eating dinner at her residential when she began to have generalized tonic-clonic activity at approximately 5:45 this evening. She has never had a seizure before. She was recently moved to the residential back in March of last year. Per report, the seizure lasted less than 5 minutes and stopped on its own. Upon EMS arrival , she was somewhat postictal. She has some bruising noted on the bottom of her lip, but her tongue showed no indications of trauma. Workup in the emergency department has demonstrated a head CT scan negative for acute findings. Metabolic profile is unremarkable. She had a slight left-sided facial droop upon arrival which has now resolved. Family states she is back to her usual baseline. Please refer to charted lab data, radiographic imaging reports, medication administration reports, and ER provider documentation for further details. At the request of the ER provider, this patient will be placed in the hospital tonight for further evaluation and treatment of presenting issues. Please note this patient encounter was performed via the use of telemedicine technology Review of Systems All systems PM: 10-point ROS was reviewed, no additional remarkable complaints except Past Medical History Family History: As Above - Social History Smoking status: Unknown if ever smoked Medications Home Medications Medication Instructions Recorded Confirmed Type Acetaminophen [Acetaminophen 8 650 mg PO Q8HR PRN 08/16/17 08/16/17 History Hour] Alendronate [Fosamax] 70 mg PO Q7D 08/16/17 08/16/17 History Bisacodyl Supp [Dulcolax] 10 mg RECTALLY DAILY PRN 08/16/17 08/16/17 History Bisacodyl [Women's Laxative] 5 mg PO DAILY PRN 08/16/17 08/16/17 History Cholecalciferol (Vitamin D3) 2,000 unit PO DAILY 08/16/17 08/16/17 History [Vitamin D3] Docusate Sodium [Colace] 100 mg PO BID 08/16/17 08/16/17 History Hydrocodone/APAP 5/325 [[place] 1 - 2 tab PO Q4H PRN 08/16/17 08/16/17 History 5/325] Levothyroxine Tab [Synthroid] 25 mcg PO ACB 08/16/17 08/16/17 History Memantine [Namenda] 10 mg PO BID 08/16/17 08/16/17 History Milk of Magnesia [Mom] 30 ml PO DAILY PRN 08/16/17 08/16/17 History Mv-Min/FA/Vit K/Lycop/Lut/Zeax 1 each PO DAILY 08/16/17 08/16/17 History [Ocuvite Eye + Multi Tablet] PEG 3350 17gm PACKET [Miralax] 17 gm PO DAILY PRN 08/16/17 08/16/17 History PEG 3350 17gm PACKET [Miralax] 17 gm PO Q2D 08/16/17 08/16/17 History Sertraline [Zoloft] 50 mg PO DAILY 08/16/17 08/16/17 History Allergies Allergy/AdvReac Type Severity Reaction Status Date / Time azithromycin Allergy Unknown Verified 08/16/17 19:00 cyclobenzaprine Allergy Unknown Verified 08/16/17 19:00 [From Flexeril] shrimp Allergy Unknown Verified 08/16/17 19:00 Exam Vital Signs: Temperature 98.3 F 08/16/17 20:53 Pulse Rate 111 H 08/16/17 20:53 Respiratory Rate 18 08/16/17 20:53 Blood Pressure 152/67 H 08/16/17 20:53 Pulse Oximetry 94 08/16/17 20:53 Height/Weight/BMI: Height 1.6 m Weight 46.4 kg Body Mass Index 18.1 - Constitutional Present: no acute distress - Routine HEENT Exam Head: Present: normocephalic, abrasion (bottom lip) - Routine Respiratory Exam Present: CTA bilaterally - Routine Cardiovascular Exam Present: RRR, S1, S2, no murmur - Routine Abdominal Exam Present: soft, normoactive bowel sounds, non tender - Routine Extremities Exam Absent: edema - Routine Skin Exam Present: intact. Absent: rash - Routine Neurological Exam Present: alert, CN II-XII intact. Absent: sensory deficit, motor deficit Reported facial droop has apparently resolved Results - Labs CBC & Chem 7: 08/17/17 03:55 08/17/17 03:55 Assessment and Plan (1) Seizure Current visit: Yes Status: Acute Assessment and Plan: Assessment Seizure like activity, new onset, with suscpicion for possible TIA Severe dementia History of cerebrovascular disease and previous TIAs Dysphagia-on an altered diet at [place] Plan This patient will be placed under observation status to the medical floor. Neuro checks will continue, Telemetry monitoring. Patient will be kept NPO until swallow evaluation can be completed. Gentle IV fluids for maintenance purposes. PRN Ativan for seizures lasting longer than 5 minutes. Consideration of MRI brain can be entertained in the morning by the daytime provider. Consultation requests to PT/OT/ST. I have reviewed the provided list of home medications. Home medications will be primarily held tonight. Daytime rounding provider to please review and make further changes as necessary in the morning. Clinical progress will be monitored, and supportive care will be provided. Changes to the aforementioned plan will be made this evening as necessary. Appropriate DVT prophylaxis has been ordered. Patient has advanced directives for DNR status. - Physician Narrative Physician: Julia Jimenez MD Narrative: Date: 08/17/17 Time: 1330 Please see updated notes dictated 08/17/17. Hospital Course Summary Disclaimer: The visit summary below is not to be considered part of the above Progress Note.
[2017-08-17] MEDS: NS 500 ML IV SCH ×2 (07:42→07:43)
--- NOTE | 2017-08-17 09:27 | CT Scan Report ---
Indication: New-onset seizure and AMS PROCEDURE: CT head/brain wo con: Encounter: Initial Comparison: None. Findings: There is mild prominence of the ventricles and sulci compatible with cortical atrophy. There is no mass, mass effect, or midline shift. No evidence for intracranial hemorrhage. No intra or extra-axial fluid collections. No evidence for depressed skull fracture. The included portions of the sinuses are clear. IMPRESSION: Mild cortical atrophy. No evidence for acute cortical infarct, intracranial hemorrhage, or mass. .
[2017-08-17] MEDS: NS 1,000 ML IV SCH (10:18)
--- NOTE | 2017-08-17 11:45 | XRay Report ---
Indication: seizure PROCEDURE: XR chest 1V: Encounter: Initial Comparison: None. Findings: Heart size is normal. There is mild elevation of the lateral left diaphragm. The lungs are clear. There is no focal opacity to suggest atelectasis or pneumonia. No mediastinal or hilar adenopathy. No pleural effusion. There is no significant tortuosity of the descending thoracic aorta. There is moderate calcification of the transverse thoracic aorta. There is mild degenerative disc disease of the thoracic spine. IMPRESSION: No acute process. .
[2017-08-17] MEDS ORDERED: SALINE FLUSH 10ml SYRINGE ONE (13:15)
[2017-08-17] MEDS ORDERED: GADOTERIDOL 279.3mg/ml - 10ml vial IVP ONE (13:16)
--- NOTE | 2017-08-17 14:11 | History & Physical Report ---
History of Present Illness Date: 08/17/17 Chief complaint: seizure, altered mental status HPI: Winter Isbell is a pleasant, non-verbal 77-year-old resident of [facility] and sees Dr. Pérez for primary care. She has a known history of dementia and is nonverbal at baseline. Her 3 daughters are present on exam and provide the history in conjunction with nursing notes from the jail, EMS report , ED records and prior medical records. It was reported that last evening while she was eating dinner she cried out suddenly and then was observed by jail staff to have seizure-like activity for approximately 2 minutes. Family denies any history of prior seizures. She was initially unresponsive and EMS was dispatched. Upon arrival of EMS, she appeared to be postictal. She was transported to [facility] emergency room for further evaluation. En route to [facility], EMS reports that she began to become more alert and opened her eyes, but did not appear to be able to focus. Upon arrival to the ED, she was more alert and noted to be able to focus better. Labs were obtained and were relatively unremarkable. UA was negative and toxicology screen was negative. CT head was obtained and revealed mild cortical atrophy without evidence of acute infarct, intracranial hemorrhage or mass. ED documentation noted slight left-sided facial droop which resolved prior to admission. Family admits to prior TIA 22 years ago. Due to her apparent new onset of seizures with altered mental status , she was admitted to the hospitalist service. She was initially seen by telemedicine overnight. On exam, she is seen while sitting up in her recliner with family in the room. She is alert. When asked how she is doing, she responds, "good". During the rest of the interview, she appears confused and appears to be unable to understand additional questions. Per family, she is very hard of hearing and refuses to wear her hearing aids. It is unclear if her chronic nonverbal status is due to mental status or difficulty hearing. She was seen and evaluated by physical therapy and was noted to have be dragging her right foot which family states is new. She was also seen and evaluated by Dr. Wilde who noted increased spasticity to her right upper extremity. Family reports that in March 2017 she fell at home down some stairs which resulted in multiple fractures to her upper and lower extremities. At that time, she was moved into [facility] for increased cares. Family states that since her move, she has had a rapid decline in her cognitive and functional status. No recent illnesses, fevers, vomiting or diarrhea. No new medications. Review of Systems ROS unobtainable: due to mental status All systems PM: 10-point ROS was reviewed, no additional remarkable complaints except - Constitutional Constitutional: Present: weakness. Absent: fever(s) - EENMT Nose: Absent: nosebleeds Mouth/Throat: Present: dry mouth - Cardiovascular Cardiovascular: Present: heart murmur Rhythm: Present: regular rhythm Vascular: Absent: pallor of an extermity - Respiratory Respiratory: Absent: cough - Gastrointestinal Gastrointestinal: Present: constipation. Absent: vomiting - Genitourinary Genitourinary: Present: other (decreased urinary output) Menstruation: post hysterectomy - Musculoskeletal Musculoskeletal: Present: muscle weakness. Absent: deformity - Integumentary/Breasts Integumentary: Absent: rash - Neurological Neurological: Present: confusion, convulsions, focal weakness (questionable right sided), frequent falls, memory loss, weakness, other (Nonverbal) - Psychiatric Psychiatric: Present: depression - Endocrine Endocrine: Absent: flushing - Hematologic/Lymphatic Hematologic/Lymphatic: Absent: easy bruising - Allergic/Immunologic Allergic/Immunologic: Absent: seasonal rhinorrhea Past Medical History Medical History Updates: Dementia. Dysphagia. Hyperlipidemia - no current treatments; previously on lipitor. Chronic kidney disease, stage III. GERD. Major depressive disorder. Hypothyroidism. Osteoporosis. Constipation. Chronic pain. 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 History of fall with multiple fractures - 03/2017. History of traumatic pneumothorax - 03/2017. History of TIA - 1997. History of heart arrhymthia. Frequent UTIs. Surgical History: ORIF right tibia - 03/2017. Cholecystectomy. Tonsillectomy. Hysterectomy. Family History Updates: Father - dementia. Mother - from old age. Sister - , dementia. 3 daughters and 1 son, all living and reportedly healthy. Family History: As Above - Social History Smoking status: Never smoker second hand exposure: Yes (Former exposure - while was alive.) Substance use type: does not use Alcohol intake frequency: does not drink Housing: jail (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 Pérez. Previously seen by Dr. Lis Braxton, neurology, for dementia. Medications Home Medications Medication Instructions Recorded Confirmed Type Acetaminophen [Acetaminophen 8 650 mg PO Q8HR PRN 08/16/17 08/16/17 History Hour] Alendronate [Fosamax] 70 mg PO Q7D 08/16/17 08/16/17 History Bisacodyl Supp [Dulcolax] 10 mg RECTALLY DAILY PRN 08/16/17 08/16/17 History Bisacodyl [Women's Laxative] 5 mg PO DAILY PRN 08/16/17 08/16/17 History Cholecalciferol (Vitamin D3) 2,000 unit PO DAILY 08/16/17 08/16/17 History [Vitamin D3] Docusate Sodium [Colace] 100 mg PO BID 08/16/17 08/16/17 History Hydrocodone/APAP 5/325 [[place] 1 - 2 tab PO Q4H PRN 08/16/17 08/16/17 History 5/325] Levothyroxine Tab [Synthroid] 25 mcg PO ACB 08/16/17 08/16/17 History Memantine [Namenda] 10 mg PO BID 08/16/17 08/16/17 History Milk of Magnesia [Mom] 30 ml PO DAILY PRN 08/16/17 08/16/17 History Mv-Min/FA/Vit K/Lycop/Lut/Zeax 1 each PO DAILY 08/16/17 08/16/17 History [Ocuvite Eye + Multi Tablet] PEG 3350 17gm PACKET [Miralax] 17 gm PO DAILY PRN 08/16/17 08/16/17 History PEG 3350 17gm PACKET [Miralax] 17 gm PO Q2D 08/16/17 08/16/17 History Sertraline [Zoloft] 50 mg PO DAILY 08/16/17 08/16/17 History Allergies Allergy/AdvReac Type Severity Reaction Status Date / Time azithromycin Allergy Unknown Verified 08/16/17 19:00 cyclobenzaprine Allergy Unknown Verified 08/16/17 19:00 [From Flexeril] shrimp Allergy Unknown Verified 08/16/17 19:00 Exam Vital Signs: Temperature 98.0 F 08/17/17 12:00 Pulse Rate 95 08/17/17 12:00 Respiratory Rate 17 08/17/17 12:00 Blood Pressure 120/62 08/17/17 12:00 Pulse Oximetry 97 08/17/17 12:00 Telemetry Rhythm: Sinus Tachycardia Height/Weight/BMI: Height 5 ft 3 in Weight 110 lb 7.225 oz Body Mass Index 18.1 Comments: Patient is seen while sitting up in the recliner with family at the bedside. Exam is limited as she does not follow directions completely and remains silent during exam as she is known to be nonverbal. - Constitutional Present: no acute distress, well nourished, well developed, thin, cooperative - Routine HEENT Exam Head: Present: normocephalic, atraumatic Eye: Present: PERRL. Absent: conjunctival icterus ENT: Present: mucous membranes dry - Routine Neck Exam Present: supple, full ROM, trachea midline - Routine Chest/Breast/Axilla Exam Chest wall: Absent: tenderness, pacemaker - Routine Respiratory Exam Present: decreased breath sounds. Absent: wheezes Comments: No cough. - Routine Cardiovascular Exam Present: murmur, tachycardia - Routine Abdominal Exam Present: soft, non distended Comments: hypoactive bowel sounds. - Routine Extremities Exam Present: edema, pulses intact - Routine Back/Spine/Pelvis Exam Back/Spine: Absent: vertebral tenderness Comments: Increased spasticity to right as compared to left upper extremity. - Routine Skin Exam Present: dry, warm Comments: Afebrile. - Routine Neurological Exam Present: alert. Absent: facial asymmetry Patient is non-verbal and known to be hard of hearing. - Routine Psychiatric Exam Present: cooperative Results - Labs CBC & Chem 7: 08/17/17 03:55 08/17/17 03:55 - Imaging and Cardiology CT scan - head Status: image reviewed by me Additional comments: Date of Exam: 08/16/17 Type of Exam(s): CT head/brain wo con Reason for Exam(s): New-onset seizure and AMS Findings: There is mild prominence of the ventricles and sulci compatible with cortical atrophy. There is no mass, mass effect, or midline shift. No evidence for intracranial hemorrhage. No intra or extra-axial fluid collections. No evidence for depressed skull fracture. The included portions of the sinuses are clear. IMPRESSION: Mild cortical atrophy. No evidence for acute cortical infarct, intracranial hemorrhage, or mass. Chest x-ray Status: image reviewed by me Additional comments: Date of Exam: 08/17/17 Type of Exam(s): XR chest 1V Reason for Exam(s): seizure Findings: Heart size is normal. There is mild elevation of the lateral left diaphragm. The lungs are clear. There is no focal opacity to suggest atelectasis or pneumonia. No mediastinal or hilar adenopathy. No pleural effusion. There is no significant tortuosity of the descending thoracic aorta. There is moderate calcification of the transverse thoracic aorta. There is mild degenerative disc disease of the thoracic spine. IMPRESSION: No acute process. Assessment and Plan (1) Seizure Current visit: Yes Status: Acute Assessment and Plan: Assessment Altered mental status. New onset seizures. Oliguria. Anemia, suspect secondary to chronic disease. Dementia. Nonverbal, chronic. Dysphagia, chronic. Hyperlipidemia - no current treatments; previously on lipitor. Chronic kidney disease, stage III. GERD. Major depressive disorder. Hypothyroidism. Osteoporosis. Constipation. Chronic pain. 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 History of fall with multiple fractures - 03/2017. History of traumatic pneumothorax - 03/2017. History of TIA - 1997. History of heart arrhythmia. Frequent UTIs. Plan - 08/17/17: Given the patient's severe dementia, history and exam are limited. Patient was admitted into observation status under the care of Dr. Jimenez. Given the concern for new seizure activity prior to admission, she was placed on seizure precautions and monitor closely on telemetry. Left-sided facial droop noted on arrival in ED and resolved prior to admission, concerning for TIA. History of TIA. CT head unremarkable. Discussed at length with family care plan options. Family requests to complete evaluation for TIA/CVA but does not want any life prolonging measures. Will obtain MRI brain, carotid doppler studies and EEG - results pending. Cholesterol elevated - history of hyperlipidemia, currently untreated. Family reports patient was previously on lipitor and did well. Will restart Lipitor 20mg QHS. Dr. Wilde was consulted and recommended initiation of Depakote ER 500mg QHS after initial loading dose of Depakote 500mg if MRI showed no acute changes such as mass. Avoid Keppra. Decreased urinary output - Roland placed for accurate measurement. Continue to monitor closely. Monitor daily weight closely for signs of fluid over load. Speech therapy consulted for dysphagia -awaiting recommendations. Will resume diet from NH - mechanical soft diet with regular liquids. Monitor closely for signs of aspiration or difficulty swallowing. No seizure activity since admission - continue to monitor. PT/OT consulted and noted right foot drop which family reports is new. CXR obtained and revealed no acute cardiopulmonary changes. Maintain gentle hydration with NS 75cc/hr given decreased oral intake. Recheck labs in AM to monitor blood counts, electrolytes and renal function. Upon discharge, patient's care will be returned to her PCP, Dr. Pérez. Patient request to be a DNR. DVT Prophylaxis: SCD's Resuscitation Status: Do Not Resuscitate - Time spent with patient Time with patient PN: 70 minutes - Physician Narrative Physician: Julia Jimenez MD Narrative: Date: 08/17/17 Time: 1729 I have independently evaluated and examined this patient. I reviewed the chart, the patient's history, and the BILLET INSPECTOR/PA's documented findings as above. We discussed and formulated the assessment and plan as above with additions as below: Mrs. Isbell was seen with daughters at bedside earlier today. History as recorded above; as far as family is aware the patient did not have any preceding falls or injuries yesterday but her daughter notes that she was more somnolent than usual late yesterday afternoon when she visited. The initial event reported when the patient transferred to the emergency room was seizure without any focal weakness described earlier. The daughter reports facial asymmetry described last night has fully resolved. Patient is minimally verbal although occasionally will mumble a single word but does not provide any history. Very slight left nasolabial fold flattening and droop, EOMI, conjugate gaze Senior Account Representative are grossly symmetric and motor tone is normal; patient withdraws both lower extremities to plantar stimulation with fairly symmetric response. Head CT reviewed by myself-significant atrophy and small vessel ischemic change ; no evidence of acute trauma or stroke. MRI of the head also reviewed by myself with same findings as CT head. Acute seizure-above results discussed with Dr. Wilde and we'll proceed with single IV dose of Depacon 500 mg; oral Depakote ER to be started tonight. EEG tenably scheduled for tomorrow after which patient can return to usual home facility. Findings and plans discussed with patient's daughters who share DPOA. Hospital Course Summary Disclaimer: The visit summary below is not to be considered part of the above Progress Note. Hospital Course: Plan - 08/17/17: Given the patient's severe dementia, history and exam are limited. Patient was admitted into observation status under the care of Dr. Jimenez. Given the concern for new seizure activity prior to admission, she was placed on seizure precautions and monitor closely on telemetry. Left-sided facial droop noted on arrival in ED and resolved prior to admission, concerning for TIA. History of TIA. CT head unremarkable. Discussed at length with family care plan options. Family requests to complete evaluation for TIA/CVA but does not want any life prolonging measures. Will obtain MRI brain, carotid doppler studies and EEG - results pending. Cholesterol elevated - history of hyperlipidemia, currently untreated. Family reports patient was previously on lipitor and did well. Will restart Lipitor 20mg QHS. Dr. Wilde was consulted and recommended initiation of Depakote ER 500mg QHS after initial loading dose of Depakote 500mg if MRI showed no acute changes such as mass. Avoid Keppra. Decreased urinary output - Roland placed for accurate measurement. Continue to monitor closely. Monitor daily weight closely for signs of fluid over load. Speech therapy consulted for dysphagia -awaiting recommendations. Will resume diet from OR - mechanical soft diet with regular liquids. Monitor closely for signs of aspiration or difficulty swallowing. No seizure activity since admission - continue to monitor. PT/OT consulted and noted right foot drop which family reports is new. CXR obtained and revealed no acute cardiopulmonary changes. Maintain gentle hydration with NS 75cc/hr given decreased oral intake. Recheck labs in AM to monitor blood counts, electrolytes and renal function. Upon discharge, patient's care will be returned to her PCP, Dr. Pérez. Patient request to be a DNR.
--- NOTE | 2017-08-17 14:36 | Magnetic Resonance Report ---
Indication: new seizure PROCEDURE: MR head/brain wo/w con: Encounter: Initial Comparison: None. FINDINGS: There is moderate prominence of ventricles and sulci compatible with cortical atrophy. There is also moderate periventricular and subcortical leukoencephalomalacia which is most commonly associated with small vessel microischemic disease. There is no definite focus of high signal on the diffusion-weighted sequences to suggest an acute ischemic process. There is no mass, mass effect, or midline shift. No evidence for intracranial hemorrhage. No intra or extra-axial fluid collections. There is no abnormal area of enhancement, including no abnormal area of meningeal enhancement. The included portions of the paranasal and mastoid sinuses are clear. 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 No evidence for acute intracranial hemorrhage, infarct or mass lesion. .
[2017-08-17] MEDS ORDERED: VALPROATE IV 500 MG in NS 100 ML IV ONE (15:14)
--- NOTE | 2017-08-17 16:13 | Ultrasound Report ---
Indication: seizure/AMS PROCEDURE: US carotid doppler BI: Encounter: Initial Comparison: None. TECHNIQUE: Page-scale, color flow, and spectral pulsed Doppler imaging of the carotid and vertebral arteries of both sides of the neck was performed with segmental recordings of velocity spectra. FINDINGS: There is mild atherosclerotic plaque bilaterally. Longitudinal color flow images reveal all vessels to be patent with a normal flow direction. The velocity spectra are of normal shape without flow acceleration or spectral broadening. The following peak systolic and end-diastolic velocities were measured (units given in cm/s): Right Common Carotid: 70 Prox Internal Car: 67/11 Mid Internal Carotid: 82/29 Dist Internal Carotid: 83/18 External Carotid: 117 Vertebral Artery: Antegrade Systolic Ratio: 1.2 Left Common Carotid: 78 Prox Internal Car: 74/12 Mid Internal Carotid: 70/16 Dist Internal Carotid: External Carotid: 98 Vertebral Artery: 24 Systolic Ratio: 0.9 IMPRESSION: Normal to mild internal carotid artery stenosis, bilaterally, with estimated percent stenosis between 0% and 50% using NASCET criteria adapted to duplex ultrasound. Bilateral patent antegrade vertebral arteries. .
--- NOTE | 2017-08-17 17:15 | Consultation ---
DATE OF CONSULTATION 08/17/[address] Jimenez. CHIEF COMPLAINT Seizure. HISTORY OF PRESENT ILLNESS Patient is a 77-year-old female with history of dementia. The patient was in her normal state of health at the detention, eating her dinner, when she suddenly became unresponsive. She had increased body tone and diffuse body- jerking lasting for about two minutes. The patient became postictal for a few minutes. The patient has no recollection to the event. She had no preceding symptoms. The patient denies having any similar problems in the past. She was not feeling dizzy prior to the event. The patient was brought to the emergency room. She had a CT of the head that was unremarkable. Her lab workup showed some mild dehydration. Her sodium level was normal. She was also mildly anemic. The patient had two major falls in the past year. One happened in August 2016 and one in March. The patient broke her left leg in March as a result of the fall. She also sustained a large hematoma on the back of her head in August. There was no evidence of intracranial hemorrhages on either one of those falls. The patient had no particular loss of consciousness or seizure activity at that time. The patient had been seizure-free since admission. She has had no new focal weakness or numbness. She had an MRI of the brain later this afternoon that showed no significant abnormalities. There was some diffuse brain atrophy and hydrocephalus consistent with brain atrophy. On physical examination the patient was awake, alert, oriented to self. She has difficulty with orientation to time and place. The patient's speech was very poor and slow. Vision was borderline. The patient was not able to follow commands very well. Her eye movements were normal. Visual field was borderline. Her motor examination was 5-/5 in the upper extremities. The patient was having some problem with her right arm. She was trying to keep her warm all the time. Her motor examination in the lower extremities was 4-4+/5. Deep tendon reflexes were 2/5 in the upper extremities, 3/5 in the lower extremities with some mild clonus in the right lower extremity. Plantar reflexes were equivocal bilaterally. Sensory examination was symmetrical for light touch and pinprick bilaterally. Coordination was slightly slower on the right compared to the left. ASSESSMENT New-onset complex partial seizure. Risk factors include traumatic brain injury and concussion from falls she had in the past year. Other risk factors include advanced dementia and brain atrophy. PLAN 1. Load the patient with Depakote IV 500 mg x 1, then start Depakote ER 500 mg p.o. q.h.s. for seizure prevention. This can be increased up to 1000 mg p.o. q.h.s. if having more seizures. 2. EEG can be done inpatient or outpatient to assess risk for seizure. 3. Optimize treatment for high blood pressure and avoid hypotension. 4. Provide good fluid intake and avoid dehydration and sleep deprivation. MTDD
[2017-08-17] MEDS ORDERED: ATORVASTATIN 20 MG TABLET PO SCH (21:00)
[2017-08-18] MEDS: NS 1,000 ML IV SCH (03:39)
[2017-08-18] MEDS ORDERED: PNEUMOCOCCAL 23 VACCINE 0.5ml INJECTION IM ONE (10:15)
--- NOTE | 2017-08-18 11:59 | Discharge Summary ---
Discharge Information Date of admission: 08/17/17 15:03 Anticipated date of discharge: 08/18/17 Attending Physician: Julia Jimenez MD Primary care physician: Aura Pérez MD Consults: Dr. Karen Wilde - Discharge Diagnosis (1) Seizure Status: Acute New onset complex partial seizures. Altered mental status. Anemia, suspect secondary to chronic disease. Dementia. Nonverbal, chronic. Dysphagia, chronic. Hyperlipidemia Chronic kidney disease, stage III. GERD. Major depressive disorder. Hypothyroidism. Osteoporosis. Chronic pain. 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 - Procedures Procedures: EEG was completed on 08/18/17; report pending at discharge. - Laboratory Labs: On admission 08/16/17 CBC, INR, and CMP were unremarkable. Urinalysis and urine drug screen were negative. Total cholesterol 250, triglycerides 240, LDL 169, HDL 33 on 08/17/17. 08/18/17 04:35 08/18/17 04:35 - Radiology Radiology: Noncontrast CT head on 08/16/17: There is mild prominence of the ventricles and sulci compatible with cortical atrophy. There is no mass, mass effect, or midline shift. No evidence for intracranial hemorrhage. No intra or extra-axial fluid collections. No evidence for depressed skull fracture. The included portions of the sinuses are clear. IMPRESSION: Mild cortical atrophy. No evidence for acute cortical infarct, intracranial hemorrhage, or mass. ----- Chest x-ray on 08/17/17 demonstrated no acute disease ----- MRI of the brain with and without contrast on 08/17/17: There is moderate prominence of ventricles and sulci compatible with cortical atrophy. There is also moderate periventricular and subcortical leukoencephalomalacia which is most commonly associated with small vessel microischemic disease. There is no definite focus of high signal on the diffusion-weighted sequences to suggest an acute ischemic process. There is no mass, mass effect, or midline shift. No evidence for intracranial hemorrhage. No intra or extra-axial fluid collections. There is no abnormal area of enhancement, including no abnormal area of meningeal enhancement. The included portions of the paranasal and mastoid sinuses are clear. 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 No evidence for acute intracranial hemorrhage, infarct or mass lesion. ----- Carotid Dopplers on 08/17/17: Normal to mild internal carotid artery stenosis, bilaterally, with estimated percent stenosis between 0% and 50% using NASCET criteria adapted to duplex ultrasound. Bilateral patent antegrade vertebral arteries. History of Present Illness HPI: Winter Isbell is a pleasant, non-verbal 77-year-old resident of [facility] and sees Dr. Pérez for primary care. She has a known history of dementia and is nonverbal at baseline. Her 3 daughters are present on exam and provide the history in conjunction with nursing notes from the [facility], EMS report , ED records and prior medical records. It was reported that last evening while she was eating dinner she cried out suddenly and then was observed by [facility] staff to have seizure-like activity for approximately 2 minutes. Family denies any history of prior seizures. She was initially unresponsive and EMS was dispatched. Upon arrival of EMS, she appeared to be postictal. She was transported to [facility] emergency room for further evaluation. En route to [facility], EMS reports that she began to become more alert and opened her eyes, but did not appear to be able to focus. Upon arrival to the ED, she was more alert and noted to be able to focus better. Labs were obtained and were relatively unremarkable. UA was negative and toxicology screen was negative. CT head was obtained and revealed mild cortical atrophy without evidence of acute infarct, intracranial hemorrhage or mass. ED documentation noted slight left-sided facial droop which resolved prior to admission. Family admits to prior TIA 22 years ago. Due to her apparent new onset of seizures with altered mental status , she was admitted to the hospitalist service. She was initially seen by telemedicine overnight. On exam, she is seen while sitting up in her recliner with family in the room. She is alert. When asked how she is doing, she responds, "good". During the rest of the interview, she appears confused and appears to be unable to understand additional questions. Per family, she is very hard of hearing and refuses to wear her hearing aids. It is unclear if her chronic nonverbal status is due to mental status or difficulty hearing. She was seen and evaluated by physical therapy and was noted to have be dragging her right foot which family states is new. She was also seen and evaluated by Dr. Wilde who noted increased spasticity to her right upper extremity. Family reports that in March 2017 she fell at home down some stairs which resulted in multiple fractures to her upper and lower extremities. At that time, she was moved into [facility] for increased cares. Family states that since her move, she has had a rapid decline in her cognitive and functional status. No recent illnesses, fevers, vomiting or diarrhea. No new medications. Objective Vital signs: Temperature 98.5 F 08/18/17 08:39 Pulse Rate 109 H 08/18/17 08:39 Respiratory Rate 16 08/18/17 08:39 Blood Pressure 146/73 H 08/18/17 08:39 Pulse Oximetry 93 - RA 08/18/17 08:39 NAD, occasionally mumbles yes but provides no history Respirations nonlabored, good airflow, anterior breath sounds clear Regular rhythm, S1-S2, low-grade tachycardia MAEW, power grossly symmetric but does not follow commands to formally test strength Ambulates with walker and standby assistance Height/Weight/BMI: Weight 50.1 kg Hospital Course This is a general summary of the patient's hospital course. For more details refer to the complete medical record. Hospital course: Mrs. Isbell was hospitalized evening of 08/16 after witnessed seizure activity at her nursing facility. She has no past history of seizure but was reported to have generalized tonic-clonic activity a little before 6 PM lasting less than 5 minutes followed by period of unresponsiveness. She was transferred to the emergency room and [place] where CT head without contrast demonstrated significant atrophy but no acute pathology. The patient was awake in the emergency room and looking around. There was initial report of left-sided facial droop which resolved by the time the patient was admitted to the medical unit. The patient had no further seizure activity during the hospitalization. She was seen by Dr. Wilde on 08/17 and MRI of the head was obtained with and without contrast with no new findings. Specifically there was no evidence of acute stroke or tumor to account for new onset seizure. Subsequently it was recommended that the patient be started on Depakote with initial 500 mg dose given IV and subsequently she was placed on Depakote ER [address] Wilde recommended increasing the dose to 1000 mg at bedtime if she has recurrent seizures at the lower dose. Additionally he recommended maintaining good hydration and avoiding sleep deprivation to minimize risk of seizures and optimizing treatment of hypertension (blood pressure control appeared to be good during hospital course). Lipids were obtained due to initial concern the patient may have experienced stroke and she had significantly elevated LDL/depressed HDL for which atorvastatin was started as family indicated she has taken this previously. Patient was seen by PT/OT and return to nursing facility recommended. No additional problems were encountered during the hospital course. The patient's daughters were at the hospital throughout much of the hospitalization and confirmed prior DO NOT RESUSCITATE order which will be continued at discharge. On the date of discharge the patient remained nonverbal beyond saying hi or by. She was alert and pleasant but provide no historical information. Nursing reported no concerns overnight and the patient was stable when ambulating in the halls. EEG was obtained the morning of discharge and will be read by Dr. Wilde in the near future. Follow-up can be coordinated with Dr. Wilde if needed. Time spent with patient: discharge greater than 30 minutes Resuscitation Status: Do Not Resuscitate Discharge Plan - Discharge Disposition Discharge Date: 08/18/17 Disposition: 04 To [facility] Home/Facility *Condition: Improved Reason For Visit (Visit label in EMR): Innitiation of medication requires inpt care - Discharge Medications *Discharge Medications: New Divalproex ER [Depakote ER] 500 mg PO HS tablet Atorvastatin [Lipitor] 20 mg PO HS tablet Continue Bisacodyl [Women's Laxative] 5 mg PO DAILY PRN PRN Reason: Constipation Acetaminophen [Acetaminophen 8 Hour] 650 mg PO Q8HR PRN PRN Reason: Pain Memantine [Namenda] 10 mg PO BID Docusate Sodium [Colace] 100 mg PO BID Mv-Min/FA/Vit K/Lycop/Lut/Zeax [Ocuvite Eye Plus Multi Tablet] 1 each PO DAILY Levothyroxine Tab [Synthroid] 25 mcg PO ACB Cholecalciferol (Vitamin D3) [Vitamin D3] 2,000 unit PO DAILY Alendronate [Fosamax] 70 mg PO Q7D Bisacodyl Supp [Dulcolax] 10 mg RECTALLY DAILY PRN PRN Reason: Constipation PEG 3350 17gm PACKET [Miralax] 17 gm PO Q2D PEG 3350 17gm PACKET [Miralax] 17 gm PO DAILY PRN PRN Reason: Constipation Milk of Magnesia [Mom] 30 ml PO DAILY PRN PRN Reason: Constipation Hydrocodone/APAP 5/325 [Mousie 5/325] 1 - 2 tab PO Q4H PRN PRN Reason: Pain Sertraline [Zoloft] 50 mg PO DAILY - Discharge Packet/Instructions *Diet: Regular diet, mechanical soft *Activity: Up with assistance and front-wheeled walker *Pain Management/Treatment: See medication list *Wound Care: Not applicable Additional Instructions: New medications: Depakote ER 500 mg at bedtime--- for seizures. Atorvastatin 20 mg daily--- for high cholesterol *Expected Signs/Symptoms: Depakote may cause drowsiness, lab work will need to be checked periodically *Notify Physician if: Anything out of the ordinary noted *During Business Hours Contact: Nurses at [facility] *After Business Hours Contact: Nurses at [facility] *Pending Lab/Results: No Pending Lab - Referrals/Follow Up *Referrals/Follow Up: Aura Pérez MD [Primary Care Provider] - - Patient Handouts - Dismissal Complete Discharge Instructions are:: Complete Physician Narrative - Narrative Attestation Narrative: Date: 08/18/17 Time: 3174
[2017-08-18 12:16] VITALS: BP 116/52; PULSE 102; RESP 14; TEMP 98.9; O2SAT 96
--- NOTE | 2017-08-18 12:18 | Extended Care Facility Orders ---
Admission Orders Admit to:: [facility] Allergies/Adverse Reactions: Allergies azithromycin Allergy (Unknown, Verified 08/16/17 19:00) cyclobenzaprine [From Flexeril] Allergy (Unknown, Verified 08/16/17 19:00) shrimp Allergy (Unknown, Verified 08/16/17 19:00) Admitting Diagnosis: Seizure Admitting Physician: Julia Jimenez MD Attending Physician: Julia Jimenez MD Code Status: Do Not Resuscitate Anticiapted Length of Stay: 30 days or less Rehab Potential: fair Rehab Prognosis: fair Diet: Mechanical soft regular diet May use Facility Protocol or Standing Orders: Yes May have flu vaccine: Yes Alf Certification: I certify that SNF services are required to be given on an Inpatient basis because of the patients need for detention care on a continuing basis for the condition(s) for which he/she received inpatient hospital services prior to his/her transfer to the SNF. SNF inpatient care is necessary for the following reasons Indication for Alf: Not Applicable - Additional Information In Event of Arrest: Do Not Start CPR Referrals: Aura Pérez MD [Primary Care Provider] - Additional Orders: New medications: Depakote ER 500 mg daily at bedtime for seizures, atorvastatin 20 mg daily at bedtime for hyperlipidemia.
[2017-08-18] MEDS ORDERED: PNEUMOCOCCAL VAC ADMIN CHARGE INJ ONE (13:53)
== END 2017-08-18 13:54 | DRG 101 ==
LOC: ED 18:29 → MED 18:29
PROVIDERS: ADMIT Hospitalist; ATTEND Internal Medicine